=== PATIENT | female | born 1955 | race Caucasian/White ===

== ENCOUNTER 2021-06-27 08:14 | Emergency (ER) | payer OTHER, SELFPAY ==
[2021-06-27 08:15] VITALS: BP 140/100; PULSE 114; RESP 18; TEMP 36.5; O2SAT 95; BMI 31.8
--- NOTE | 2021-06-27 08:56 | EX.ED.DYSGE1 ---
HPI History of Present Illness Chief Complaint: Cellulitis Informant: patient and spouse/S.O. Onset/Context/Timing Onset: Yesterday Context: Gradual Onset Timing: Continuous Current Severity: Mild Maximum Severity: Mild Narrative Narrative: 66-year-old female history of diabetes and hypertension. States that she developed redness to the bridge of her nose yesterday and today it sore. She has had episodes like this before with either cellulitis or allergic reactions. She denies any fever or chills. Recently she did clean the floor with chemicals but is not sure if that is involved with this or not. Prior similar symptoms: Yes Recent Illness/Hospitalization: No PFSH PFSH Medical History Diabetes High cholesterol Hypertension Home Medications cephalexin 500 mg PO Q6H 7 Days #28 cap 06/27/21 [Rx Last Taken Unknown] Allergy/AdvReac Type Severity Reaction Status Date / Time bee venom protein (honey bee) Allergy Anaphylaxis Verified 06/27/21 08:18 Social History Smoking Status: Never smoker ROS ROS ED ROS Narrative Denies recent illness. Review of Systems ROS Unobtainable: Denies due to encephalopathy Constitutional Constitutional ED: Denies fever(s) Eyes Eyes: Denies change in vision ENT ENT ED: Denies ear pain Cardiovascular Cardiovascular: Denies chest pain Respiratory/Chest Respiratory/Chest: Denies dyspnea Gastrointestinal Gastrointestinal: Denies abdominal pain Genitourinary Genitourinary ED: Denies dysuria Musculoskeletal Musculoskeletal: Denies myalgias Integumentary Denies rash Neurologic Neurologic: Denies headache(s) Psychiatric Psychiatric: Denies depression Endocrine Endocrinology: Denies polyuria Allergic/Immunologic Allergic/Immunologic ED: Denies urticaria EXAM Physical Exam Narrative Exam Narrative: 66-year female no acute distress vital signs stable afebrile. H EENT exam she has mild redness tenderness to the bridge of her nose on the skin. There is no trauma. There is no malar rash at this time. Mild nasal congestion. TMs normal. Posterior pharynx normal. Multiple areas of dental decay and caries. No gingival swelling. Neck nontender no lymphadenopathy. Lungs are clear. Heart regular rate and rhythm. Otherwise exam unremarkable. Const Vital Signs: 06/27/21 08:15 Temperature 97.7 F L Temperature Source Temporal Pulse Rate 114 H Respiratory Rate 18 Blood Pressure 140/100 H Blood Pressure Mean 113 Pulse Ox 95 Oxygen Delivery Method Room Air Positive well nourished and well developed; Negative for cachectic, contractures or unkempt General Appearance ED: well developed and NAD; Negative for unkempt, cachectic, contractures or pallor Nutritional Appearance: Negative for cachectic HEENT Reports moist mucous membranes tenderness; Negative for trauma Eyes PERRL and EOMs intact bilaterally Neck no lymphadenopathy, supple and no JVD General: Negative for tenderness Chest Wall inspection of chest normal and palpation of chest normal Resp normal respiratory effort and clear to auscultation bilaterally Auscultation: Negative for rales, rhonchi or wheezes Cardio regular rate, regular rhythm, S1 normal heart sound, S2 normal heart sound and no murmurs GI normal to inspection, nondistended, normoactive bowel sounds, non-tender, non-distended and no masses Auscultation: normoactive bowel sounds Palpation: soft; Negative for tender, guarding or rebound tenderness present Back/Spine no CVA tenderness General Back: Negative for CVA tenderness Cervical Spine: Negative for cervical spine tenderness Thoracic Spine / Upper Back: Negative for thoracic spinal tenderness Extremity normal to inspection General Extremety ED: Negative for edema or tenderness General Extremity: Negative for edema Neuro oriented x3 and CN's II-XII intact bilaterally Sensorium / Orientation: alert; Negative for lethargic or stuporous Motor Exam: strength 5/5 throughout Psych mental status grossly normal Appearance: Negative for unkempt Attitude: No agitated Mood & Affect: Negative for depressed or tearful Skin No no rashes or lesions noted and no wounds General Skin Exam: Negative for jaundice or pallor Rashes: rashes noted MDM MDM MDM Narrative Medical decision making narrative: Patient has a mild rash to her nose which may be secondary to early cellulitis it could also be from a chemical reaction from when she was cleaning her floor. I will start her on Keflex 4 times a day for a week she knows she can stop it if this improves. She knows to return if worse. Discharge Plan Triage Chief Complaint: Cellulitis ED Provider: Carlos Sharif Dx/Rx/DC Orders Clinical Impression: Cellulitis of face Instructions: ED Cellulitis, Facial Prescriptions: New cephalexin 500 mg capsule 500 mg PO Q6H 7 Days Qty: 28 RF: 0 Primary Care Provider: Care Physician,No Primary Referrals: Jose Dan MD [STAFF PHYSICIAN] - 1 Week if not improving Care Physician,No Primary [Primary Care Provider] - Activity Restrictions/Additional Instructions: Keflex 1 pill 4 times a day. This is an antibiotic and if this is an infection should help it resolve. Your rash could also be secondary to chemical exposure allergic reaction if so that should go in the next several days. You can use cool compresses on it. Tylenol for pain. Return if worse or follow-up if not improving. Local dentist would include: [facility], [facility] and Dr. Tyler Sumner and Dr. Chaudhry. Disposition Disposition: Home, Self Care
== END 2021-06-27 09:22 | disposition home or self-care (01) ==
PROVIDERS: Emergency Provider Emergency Medicine
DX: L03.211 Cellulitis of face (principal); K02.9 Dental caries, unspecified; E11.9 Type 2 diabetes mellitus without complications; I10 Essential (primary) hypertension; E78.00 Pure hypercholesterolemia, unspecified
CPT/HCPCS: 99282

== ENCOUNTER 2021-08-17 08:59 | Outpatient (CLI) | payer OTHER, SELFPAY ==
[2021-08-17 10:04] LABS: Absolute Lymphocyte Count 1.75 X10^3/uL (0.83-4.51); Absolute Neutrophil Count 3.1 X10^3/uL (2.0-7.7); Basophil# 0.06 X10^3/uL; Basophil% 1.1 % (0-1); Eosinophil# 0.32 X10^3/uL; Eosinophils% 5.6 % (0-5); Hematocrit 43.5 % (37-47); Hemoglobin 14.9 g/dL (12.0-15.0); Lymphocyte # 1.75 X10^3/ul (0.83-4.51); Lymphocyte % 30.8 % (19-41); Mean Corp Hgb Conc 34.3 g/dL (32-36); Mean Corpuscular Hgb 29.6 pg (27.0-32.0); Mean Corpuscular Volume 86.5 fL (81-99); Mean Platelet Vol. 13.8 fl (6.2-12.0); Monocyte# 0.43 X10^3/uL; Monocyte% 7.6 % (0-10); NRBC Flagged by Analyzer 0 % (0-5); Neutrophil # 3.11 X10^3/uL (2.7-7.7); Neutrophil % 54.5 % (47-70); Platelet Count 123 K/mm3 (150-450); RBC Distribution Width CV 12.9 % (11.6-14.6); RBC Distribution Width SD 40.1 fl (35.1-43.9); Red Blood Count 5.03 M/mm3 (4.2-5.4); White Blood Count 5.7 K/mm3 (4.4-11.0)
[2021-08-17 10:37] LABS: Vitamin B12 720 pg/mL (211-911); Vitamin D,25 Hydroxy 47.4 ng/mL
[2021-08-17 10:57] LABS: ALB/GLOB Ratio 1.2 RATIO (0.9-2.4); AST(SGOT) 19 U/L (15-37); Alanine Aminotransfer ALT/SGPT 34 U/L (13-56); Alkaline Phosphatase 77 U/L (45-117); Anion Gap 10 (5-15); BUN 11 mg/dL (7-18); BUN/Creat Ratio 19.9 RATIO (10-20); Calcium,Total 9.2 mg/dL (8.5-10.1); Chloride 106 mmol/L (98-107); Cholesterol 148 mg/dL (200); Creatinine, Serum 0.55 mg/dL (0.55-1.02); EST Glomerular Filtration Rate 117 mL/min (>60); Est Glom Filt Rate - Afr Amer 142 mL/min (>60); Globulin 3.2 g/dL (2.2-4.2); Glucose 224 mg/dL (74-106); High Density Lipoprotein 45 mg/dL; Potassium 3.8 mmol/L (3.5-5.1); Protein, Total 7.2 g/dL (6.4-8.2); Sodium Level 140 mmol/L (136-145); Triglycerides 283 mg/dL; Very Low Density Lipoprotein 57 mg/dL (5-40)
[2021-08-17 11:10] LABS: Hemoglobin A1c 9.4 % (3.8-5.6)
[2021-08-22 15:08] LABS: VITAMIN B6 97.6 ug/L (2.0-32.8)
[2021-08-22 15:45] LABS: Vitamin B1, Thiamine 223.8 nmol/L (66.5-200.0)
== END 2021-08-17 23:59 | disposition short-term general hospital (02) ==
LOC: MFPLAB 09:00
PROVIDERS: PCP Family Medicine; Referring Provider Family Medicine; Visit Provider Family Medicine
DX: E78.5 Hyperlipidemia, unspecified (principal); E11.9 Type 2 diabetes mellitus without complications; E55.9 Vitamin D deficiency, unspecified
CPT/HCPCS: 36415; 80053; 80061; 82306; 82607; 83036; 84207; 84425; 85025

== ENCOUNTER 2021-09-03 12:19 | Outpatient (CLI) | payer OTHER, SELFPAY ==
--- NOTE | 2021-09-03 12:24 | ECHOD_ITS ---
Reason For Study: MURMUR Procedure This was a 2D Doppler, Color Flow transthoracic echocardiogram. Exam performed in department. Left Ventricle Normal LV size. Left ventricular systolic function is normal. The estimated ejection fraction is 60 %. Transmitral and pulmonary venous doppler flow suggestive of impaired relaxation of left ventricle. No regional wall motion abnormalities noted. Right Ventricle Normal RV size. Normal systolic function. Atria Normal left atrium. Normal right atrium. Mitral Valve Normal mitral valve. Tricuspid Valve Normal tricuspid valve. Aortic Valve Trisinus/trileaflet aortic valve. Mild focal aortic valve calcification. Peak aortic valve gradient 25 mmHg. Mean aortic valve gradient 14 mmHg. Pulmonic Valve The pulmonic valve is not well visualized. Great Vessels Normal aortic root. The pulmonary artery is normal size. Normal inferior vena cava. Pericardium/Pleural No pericardial effusion. MMode/2D Measurements & Calculations LVIDd: 4.0 cm IVSd: 1.1 cm LVOT diam: 2.2 cm LVIDs: 2.7 cm LVPWd: 1.1 cm LVOT area: 3.9 cm2 RVDd: 3.1 cm FS: 31.5 % Ao root diam: 3.0 cm LAV(MOD-bp): 40.8 ml LA A4 area: 14.4 cm2 LAV(MOD-bp) Indexed: 21.0 ml/m2 LAV(MOD-sp2): 46.1 ml LAV(MOD-sp4): 34.4 ml LA dimension(2D): 3.2 cm RA A4 area: 12.7 cm2 Time Measurements MV dec time: 0.12 sec Doppler Measurements & Calculations MV E max prieto: 70.1 cm/sec Lat Peak E' Prieto: 10.0 cm/sec Med Peak E' Prieto: 8.4 cm/sec MV A max prieto: 87.8 cm/sec E/E' lat: 7.0 E/E' med: 8.3 MV E/A: 0.80 Ao V2 max: 250.6 cm/sec LV V1 max: 85.6 cm/sec SV(LVOT): 64.4 ml Ao max P.1 mmHg LV V1 max P.9 mmHg Ao V2 mean: 180.5 cm/sec LV V1 mean P.7 mmHg Ao mean P.3 mmHg LV V1 mean: 63.7 cm/sec Ao V2 VTI: 42.3 cm LV V1 VTI: 16.5 cm ZECHARIAH(I,D): 1.5 cm2 ZECHARIAH(V,D): 1.3 cm2 PA V2 max: 99.9 cm/sec ECHO/Echo Complete Interpretation Summary Normal LV size. Left ventricular systolic function is normal. The estimated ejection fraction is 60 %. Transmitral and pulmonary venous doppler flow suggestive of impaired relaxation of left ventricle Mild focal aortic valve calcification. Mean aortic valve gradient 14 mmHg. Structurally normal valves. Ordering Physician: Jose Dan Referring Physician: Jose Dan Performed By: Brittnee Esquivel RDCS, RVT
== END 2021-09-03 23:59 | disposition short-term general hospital (02) ==
LOC: CVS 12:20
PROVIDERS: PCP Family Medicine; Referring Provider Family Medicine; Visit Provider Family Medicine
DX: R01.1 Cardiac murmur, unspecified (principal)
CPT/HCPCS: 93306

== ENCOUNTER → 2021-12-13 | Outpatient (CLI) | payer OTHER, SELFPAY ==
[2021-12-13 10:25] LABS: Absolute Lymphocyte Count 2.15 X10^3/uL (0.83-4.51); Absolute Neutrophil Count 2.8 X10^3/uL (2.0-7.7); Basophil# 0.07 X10^3/uL; Basophil% 1.2 % (0-1); Eosinophil# 0.51 X10^3/uL; Eosinophils% 8.5 % (0-5); Hematocrit 47.9 % (37-47); Hemoglobin 15.8 g/dL (12.0-15.0); Lymphocyte # 2.15 X10^3/ul (0.83-4.51); Lymphocyte % 35.7 % (19-41); Mean Corpuscular Hgb 29.5 pg (27.0-32.0); Mean Corpuscular Volume 89.4 fL (81-99); Mean Platelet Vol. 13.7 fl (6.2-12.0); Monocyte# 0.48 X10^3/uL; NRBC Flagged by Analyzer 0 % (0-5); Neutrophil # 2.79 X10^3/uL (2.7-7.7); Neutrophil % 46.3 % (47-70); POSITIVE COUNT YES; Platelet Count 114 K/mm3 (150-450); RBC Distribution Width CV 12.7 % (11.6-14.6); RBC Distribution Width SD 41.3 fl (35.1-43.9); Red Blood Count 5.36 M/mm3 (4.2-5.4)
[2021-12-13 10:51] LABS: Hemoglobin A1c 7.5 % (3.8-5.6)
[2021-12-13 10:54] LABS: ALB/GLOB Ratio 1.5 RATIO (0.9-2.4); AST(SGOT) 17 U/L (15-37); Alanine Aminotransfer ALT/SGPT 35 U/L (13-56); Albumin, Serum 4.5 g/dL (3.2-5.0); Alkaline Phosphatase 84 U/L (45-117); Anion Gap 7 (5-15); BUN 16 mg/dL (7-18); Calcium,Total 9.3 mg/dL (8.5-10.1); Chloride 106 mmol/L (98-107); Cholesterol 146 mg/dL (200); Creatinine, Serum 0.64 mg/dL (0.55-1.02); EST Glomerular Filtration Rate 99 mL/min (>60); Est Glom Filt Rate - Afr Amer 120 mL/min (>60); Glucose 172 mg/dL (74-106); High Density Lipoprotein 45 mg/dL; Potassium 4.4 mmol/L (3.5-5.1); Protein, Total 7.5 g/dL (6.4-8.2); Sodium Level 140 mmol/L (136-145); Thyroid Stim Hormone (TSH) 1.77 uIU/mL (0.358-3.74); Triglycerides 231 mg/dL; Very Low Density Lipoprotein 46 mg/dL (5-40)
[2021-12-13 11:06] LABS: Differential Indicated SCAN CRITERIA MET; Platelet Estimate SLT DEC (ADEQ)
[2021-12-13 11:30] LABS: Vitamin B12 767 pg/mL (211-911); Vitamin D,25 Hydroxy 70.4 ng/mL
== END | disposition home or self-care (01) ==
LOC: MFPLAB 08:31
PROVIDERS: PCP Family Medicine; Referring Provider Family Medicine; Visit Provider Family Medicine
DX: I10 Essential (primary) hypertension (principal); E11.9 Type 2 diabetes mellitus without complications; E78.5 Hyperlipidemia, unspecified; E53.9 Vitamin B deficiency, unspecified; E55.9 Vitamin D deficiency, unspecified
CPT/HCPCS: 36415; 80053; 80061; 82306; 82607; 83036; 84443; 85025

== ENCOUNTER → 2021-12-18 | Outpatient (CLI) | payer OTHER, SELFPAY ==
[2021-12-18 15:54] LABS: Ferritin 157 ng/mL (8-252); Iron 76 ug/dL (50-170); Iron Binding Capacity,Total 314 ug/dL (250-450)
[2021-12-20 10:35] LABS: Transferrin 244 mg/dL (192-364)
== END | disposition home or self-care (01) ==
LOC: MFPLAB 11:44
PROVIDERS: PCP Family Medicine; Referring Provider Family Medicine; Visit Provider Family Medicine
DX: D75.1 Secondary polycythemia (principal)
CPT/HCPCS: 36415; 82728; 83540; 83550; 84466

== ENCOUNTER → 2022-03-26 | Outpatient (CLI) | payer MEDICARE, SELFPAY ==
[2022-03-26 09:59] LABS: Absolute Lymphocyte Count 2.16 X10^3/uL (0.83-4.51); Absolute Neutrophil Count 2.4 X10^3/uL (2.0-7.7); Basophil# 0.06 X10^3/uL; Basophil% 1.1 % (0-1); Eosinophil# 0.59 X10^3/uL; Eosinophils% 10.4 % (0-5); Hematocrit 44.3 % (37-47); Lymphocyte # 2.16 X10^3/ul (0.83-4.51); Mean Corp Hgb Conc 33.9 g/dL (32-36); Mean Corpuscular Hgb 29.9 pg (27.0-32.0); Mean Corpuscular Volume 88.4 fL (81-99); Mean Platelet Vol. 12.4 fl (6.2-12.0); Monocyte# 0.43 X10^3/uL; Monocyte% 7.6 % (0-10); NRBC Flagged by Analyzer 0 % (0-5); Neutrophil # 2.42 X10^3/uL (2.7-7.7); Neutrophil % 42.5 % (47-70); Platelet Count 138 K/mm3 (150-450); RBC Distribution Width CV 12.9 % (11.6-14.6); RBC Distribution Width SD 41.8 fl (35.1-43.9); Red Blood Count 5.01 M/mm3 (4.2-5.4); White Blood Count 5.7 K/mm3 (4.4-11.0)
[2022-03-26 10:19] LABS: Vitamin B12 575 pg/mL (211-911)
[2022-03-26 10:28] LABS: Hemoglobin A1c 7.7 % (3.8-5.6)
[2022-03-26 10:52] LABS: ALB/GLOB Ratio 1.2 RATIO (0.9-2.4); AST(SGOT) 15 U/L (15-37); Alanine Aminotransfer ALT/SGPT 35 U/L (13-56); Alkaline Phosphatase 78 U/L (45-117); Anion Gap 7 (5-15); BUN 13 mg/dL (7-18); Calcium,Total 9.6 mg/dL (8.5-10.1); Chloride 108 mmol/L (98-107); Cholesterol 127 mg/dL (200); Creatinine, Serum 0.68 mg/dL (0.55-1.02); EST Glomerular Filtration Rate 92 mL/min (>60); Est Glom Filt Rate - Afr Amer 111 mL/min (>60); Globulin 3.3 g/dL (2.2-4.2); Glucose 162 mg/dL (74-106); High Density Lipoprotein 44 mg/dL; Potassium 3.9 mmol/L (3.5-5.1); Protein, Total 7.3 g/dL (6.4-8.2); Sodium Level 139 mmol/L (136-145); Thyroid Stim Hormone (TSH) 2.02 uIU/mL (0.358-3.74); Triglycerides 209 mg/dL; Very Low Density Lipoprotein 42 mg/dL (5-40)
== END | disposition home or self-care (01) ==
LOC: MFPLAB 08:30
PROVIDERS: PCP Family Medicine; Referring Provider Family Medicine; Visit Provider Family Medicine
DX: E11.9 Type 2 diabetes mellitus without complications (principal); E53.9 Vitamin B deficiency, unspecified; E55.9 Vitamin D deficiency, unspecified
CPT/HCPCS: 36415; 80053; 80061; 82306; 82607; 83036; 84443; 85025

== ENCOUNTER 2022-09-26 14:14 | Emergency (ER) | payer MEDICARE, SELFPAY ==
[2022-09-26] VITALS (7 sets, daily range): BP systolic 122–165; BP diastolic 83–107; PULSE 78–98; RESP 14–17; TEMP 36.6; O2SAT 95–100; BMI 30.5
--- NOTE | 2022-09-26 15:57 | ED.VIS.CHEST ---
HPI History of Present Illness Chief Complaint: Chest Pain Narrative Narrative: Patient is presenting with chest pain and epigastric pain. This has been ongoing for a few weeks, she gets it more in the morning when she wakes up. Today she was in the store and developed that epigastric pain but it also radiated to the chest. She is now improved but came to the ED. She has no back pain or tearing sensation. There is no pleuritic component. No lower extremity edema or calf pain. No DVT or PE risk factors. [facility] Medical History (Updated 09/26/22 @ 18:[address] Michael Luciano MD) Diabetes Endometriosis High cholesterol Hypertension Home Medications cephalexin 500 mg capsule 500 mg PO Q6H 7 days #28 caps 06/27/21 [Rx Last Taken Unknown] aspirin 81 mg tablet,delayed release (Panda Low Dose Aspirin) 81 mg PO DAILY 09/26/22 [History Last Taken Unknown] atorvastatin 10 mg tablet 10 mg PO DAILY 09/26/22 [History Last Taken Unknown] cholecalciferol (vitamin D3) 50 mcg (2,000 unit) capsule (Vitamin D3) 2,000 unit PO DAILY 09/26/22 [History Last Taken Unknown] dapagliflozin 5 mg tablet (Farxiga) 5 mg PO BID 09/26/22 [History Last Taken Unknown] garlic 1 tab PO DAILY 09/26/22 [History Last Taken Unknown] glimepiride 4 mg tablet 4 mg PO DAILY 09/26/22 [History Last Taken Unknown] lisinopril 40 mg tablet 40 mg PO DAILY 09/26/22 [History Last Taken Unknown] multivitamin 1 tab PO DAILY 09/26/22 [History Last Taken Unknown] omeprazole 40 mg capsule,delayed release 40 mg PO DAILY #14 caps 09/26/22 [Rx Last Taken Unknown] Allergy/AdvReac Type Severity Reaction Status Date / Time bee venom protein (honey bee) Allergy Anaphylaxis Verified 09/26/22 14:17 Surgical History (Updated 09/26/22 @ 15:55 by Nickie Alvarado) History of appendectomy History of cholecystectomy History of hysterectomy History of tonsillectomy Social History Smoking Status: Never smoker ROS ROS ED ROS Narrative Past medical history: Reviewed Medications: Reviewed Social history: Noncontributory Review of systems: All systems negative except as indicated General: No fever Eyes: No visual changes ENT: No upper airway congestion, normal voice Neck: No neck pain Cardiovascular: Retrosternal chest pain Respiratory: No shortness of breath or cough Gastrointestinal: Epigastric pain no nausea Genitourinary: No dysuria Musculoskeletal: Denies myalgias no difficulty with ambulation Skin: No rash Neurological: No memory loss, confusion or any focal weakness EXAM Physical Exam Narrative Exam Narrative: Physical exam General: Patient appears relatively comfortable Head: Normocephalic, Atraumatic Eyes: Conjunctiva not pale ENT: Moist mucous membranes Neck: Supple, Nontender, No lymphadenopathy Cardiovascular: Regular rate, Regular rhythm Respiratory: No distress, CTA bilaterally Abdomen: Soft, reproducible tenderness in the epigastrium. No guarding or rebound no right upper quadrant pain. Negative [place]'s. Back: Nontender, Normal Inspection. Negative for: CVA tenderness Extremities: Nontender, No edema Skin: Normal color, No rash Neurological: Alert, Normal Strength, Normal Sensation Psychological: Normal affect Const Vital Signs: 09/26/22 14:15 09/26/22 15:52 09/26/22 15:52 Temperature 98 F Temperature Source Temporal Pulse Rate 94 98 Respiratory Rate 16 16 Respiratory Effort Respiratory Pattern Blood Pressure 165/107 H 160/91 H Blood Pressure Mean 126 114 Pulse Ox 100 98 98 Oxygen Delivery Method Room Air Room Air Room Air 09/26/22 15:54 09/26/22 15:58 09/26/22 16:00 Temperature Temperature Source Pulse Rate 84 Respiratory Rate 14 Respiratory Effort Normal Respiratory Pattern Normal Blood Pressure 122/85 H Blood Pressure Mean 97 Pulse Ox 97 96 Oxygen Delivery Method Room Air Room Air 09/26/22 17:00 09/26/22 18:00 Temperature Temperature Source Pulse Rate 88 90 Respiratory Rate 16 17 Respiratory Effort Respiratory Pattern Blood Pressure 129/83 H 140/83 H Blood Pressure Mean 98 102 Pulse Ox 96 95 Oxygen Delivery Method Room Air Room Air [facility] MDM Lab Data Labs: Laboratory Results - last 24 hr 09/26/22 09/26/22 09/26/22 15:50 15:50 17:02 WBC Cancelled Corrected WBC Cancelled RBC Cancelled Hgb Cancelled Hct Cancelled MCV Cancelled MCH Cancelled MCHC Cancelled RDW Std Deviation Cancelled RDW Coeff of David Cancelled Plt Count Cancelled MPV Cancelled Immature Gran % (Auto) Cancelled Neut % (Auto) Cancelled Lymph % (Auto) Cancelled Darke % (Auto) Cancelled Eos % (Auto) Cancelled Baso % (Auto) Cancelled Absolute Neuts (auto) Cancelled Absolute Lymphs (auto) Cancelled Total Counted Cancelled Neutrophils % (Manual) Cancelled Band Neutrophils % Cancelled Lymphocytes % (Manual) Cancelled Monocytes % (Manual) Cancelled Eosinophils % (Manual) Cancelled Basophils % (Manual) Cancelled Metamyelocytes % Cancelled Myelocytes % Cancelled Promyelocytes % Cancelled Blast Cells % Cancelled Plasma Cell % (Manual) Cancelled Other Cells % Cancelled Nucleated RBC % Cancelled Nucleated RBCs/100 WBC Cancelled Differential Comment Cancelled Diff Path Review Cancelled Hypersegmented Neuts Cancelled Atypical Lymphocytes Cancelled Reactive Lymphocytes Cancelled Smudge Cells Cancelled Toxic Granulation Cancelled Toxic Vacuolation Cancelled Dohle Bodies Cancelled Agustin Rods Cancelled Platelet Estimate Cancelled Plt Morphology Comment Cancelled RBC Morphology Cancelled Polychromasia Cancelled Hypochromasia Cancelled Poikilocytosis Cancelled Basophilic Stippling Cancelled Anisocytosis Cancelled Microcytosis Cancelled Macrocytosis Cancelled Spherocytes Cancelled Sickle Cells Cancelled Target Cells Cancelled Tear Drop Cells Cancelled Ovalocytes Cancelled Stomatocytes Cancelled [place] Bodies Cancelled [place] Cells Cancelled Bite Cells Cancelled Crenated Cell Cancelled Acanthocytes (Spur) Cancelled Rouleaux Cancelled Schistocytes Cancelled Sodium 141 Potassium 4.1 Chloride 107 Carbon Dioxide 27.0 Anion Gap 7 BUN 19 H Creatinine 0.61 Estim Creat Clear Calc 82.74 Est GFR (MDRD) Af Amer 126 Est GFR (MDRD) Non-Af 104 BUN/Creatinine Ratio 31.0 H Glucose 100 Calcium 9.9 Magnesium 2.6 Total Bilirubin 0.70 Direct Bilirubin 0.12 AST 24 ALT 24 Alkaline Phosphatase 74 Troponin I High Sens 5 5 Total Protein 7.9 Albumin 4.5 Globulin 3.4 Lipase 210 09/26/22 17:02 WBC 6.0 Corrected WBC RBC 5.00 Hgb 14.8 Hct 44.4 MCV 88.8 MCH 29.6 MCHC 33.3 RDW Std Deviation 41.4 RDW Coeff of David 12.7 Plt Count 128 L MPV 12.6 H Immature Gran % (Auto) 0.300 Neut % (Auto) 52.9 Lymph % (Auto) 32.9 Darke % (Auto) 8.1 Eos % (Auto) 5.5 H Baso % (Auto) 0.3 Absolute Neuts (auto) 3.2 Absolute Lymphs (auto) 1.99 Total Counted Neutrophils % (Manual) Band Neutrophils % Lymphocytes % (Manual) Monocytes % (Manual) Eosinophils % (Manual) Basophils % (Manual) Metamyelocytes % Myelocytes % Promyelocytes % Blast Cells % Plasma Cell % (Manual) Other Cells % Nucleated RBC % 0 Nucleated RBCs/100 WBC Differential Comment Diff Path Review Hypersegmented Neuts Atypical Lymphocytes Reactive Lymphocytes Smudge Cells Toxic Granulation Toxic Vacuolation Dohle Bodies Agustin Rods Platelet Estimate Plt Morphology Comment RBC Morphology Polychromasia Hypochromasia Poikilocytosis Basophilic Stippling Anisocytosis Microcytosis Macrocytosis Spherocytes Sickle Cells Target Cells Tear Drop Cells Ovalocytes Stomatocytes [place] Bodies [place] Cells Bite Cells Crenated Cell Acanthocytes (Spur) Rouleaux Schistocytes Sodium Potassium Chloride Carbon Dioxide Anion Gap BUN Creatinine Estim Creat Clear Calc Est GFR (MDRD) Af Amer Est GFR (MDRD) Non-Af BUN/Creatinine Ratio Glucose Calcium Magnesium Total Bilirubin Direct Bilirubin AST ALT Alkaline Phosphatase Troponin I High Sens Total Protein Albumin Globulin Lipase Radiography Diagnostic Testing: Clinical Impression(s) from Imaging Studies Chest X-Ray 09/26/22 16:05 IMPRESSION: No radiographic evidence of acute cardiopulmonary disease. Electronically Signed: Antonio Szymanski MD at 16:39 EST , EKG Initial EKG: Comments: Sinus rhythm with a rate of 97. Normal [place] interval. Normal QTc interval. No ischemic changes. Normal EKG. Interpreted by emergency doctor Treatment and Re-Evaluation Narrative: A. Problems addressed Patient has epigastric pain, as well as chest pain. Patient was ruled out for pneumonia, pneumothorax, acute coronary syndrome based on 2 troponins and a normal EKG. There are no signs or symptoms of a PE. Patient's likely etiology is reflux disease, she was treated for it and improved. She appears well I believe she can be safely discharged. She is not on a PPI and I will start it. B. Amount and/or complexity of the data (2 out of 3) 1. CBC CMP and 2 troponins were interpreted by me 2. Independent interpretation of test Telemetry: Sinus rhythm with a rate in the 90s without any ectopy. C. Risk of complications and/or morbidity Differential diagnosis: See above I have thought about admitting the patient for cardiac work-up however the patient did rule out with 2 troponins and a normal EKG Discharge Plan Triage Chief Complaint: Chest Pain ED Provider: Michael Luciano Dx/Rx/DC Orders Clinical Impression: Chest pain, Epigastric pain Instructions: ED Chest Pain, Uncertain Cause, ED Epigastric Pain Uncertain Cause Prescriptions: New omeprazole 40 mg capsule,delayed release(DR/EC) 40 mg PO DAILY Qty: 14 0RF No Action cephalexin 500 mg capsule 500 mg PO Q6H 7 Days Qty: 28 0RF multivitamin Tablet 1 tab PO DAILY atorvastatin 10 mg tablet 10 mg PO DAILY aspirin [Panda Low Dose Aspirin] 81 mg tablet,delayed release (DR/EC) 81 mg PO DAILY glimepiride 4 mg tablet 4 mg PO DAILY lisinopril 40 mg tablet 40 mg PO DAILY garlic Tablet 1 tab PO DAILY cholecalciferol (vitamin D3) [Vitamin D3] 50 mcg (2,000 unit) capsule 2,000 unit PO DAILY Farxiga 5 mg tablet 5 mg PO BID Primary Care Provider: Jose Dan Referrals: Jose Dan MD [Primary Care Provider] - 3-5 Days Disposition Disposition: Home, Self Care
--- NOTE | 2022-09-26 16:05 | RAD_ITS ---
EXAM: XR CHEST, 1 VIEW CLINICAL INDICATION: chest pain TECHNIQUE: Frontal view of the chest. This report was created using [employer] report generation technology. COMPARISON: None. FINDINGS: LUNGS AND PLEURAL SPACES: Unremarkable. No consolidation or edema. No pneumothorax. No effusion. HEART: Unremarkable. Cardiac silhouette not enlarged. MEDIASTINUM: Central airways and mediastinal contour are unremarkable. BONES/JOINTS: Unremarkable. SOFT TISSUES: Unremarkable. RAD/Chest 1 View (Portable) IMPRESSION: No radiographic evidence of acute cardiopulmonary disease. Electronically Signed: Antonio Szymanski MD at 16:39 EST ,
[2022-09-26] MEDS: Aspirin 81 MG TAB.CHEW 324 MG PO (16:12)
[2022-09-26] MEDS: Mag Hydrox/Al Hydrox/Simeth 30 ML UDC PO (16:13)
[2022-09-26 16:28] LABS: AST(SGOT) 24 U/L (15-37); Alanine Aminotransfer ALT/SGPT 24 U/L (13-56); Albumin, Serum 4.5 g/dL (3.2-5.0); Alkaline Phosphatase 74 U/L (45-117); Anion Gap 7 (5-15); BUN 19 mg/dL (7-18); Bilirubin, Direct 0.12 mg/dL (0.00-0.30); Calcium,Total 9.9 mg/dL (8.5-10.1); Chloride 107 mmol/L (98-107); Creatinine, Serum 0.61 mg/dL (0.55-1.02); EST Glomerular Filtration Rate 104 mL/min (>60); Est Glom Filt Rate - Afr Amer 126 mL/min (>60); Estimated Creatinine Clearance 82.74 ml/min; Globulin 3.4 g/dL (2.2-4.2); Glucose 100 mg/dL (74-106); Lipase 210 U/L (73-393); Magnesium 2.6 mg/dL (1.6-2.6); Potassium 4.1 mmol/L (3.5-5.1); Protein, Total 7.9 g/dL (6.4-8.2); Sodium Level 141 mmol/L (136-145); Troponin-I HS 5 pg/mL (3.0-54.0)
[2022-09-26 17:35] LABS: Troponin-I HS 5 pg/mL (3.0-54.0)
[2022-09-26 18:20] LABS: Absolute Lymphocyte Count 1.99 X10^3/uL (0.83-4.51); Absolute Neutrophil Count 3.2 X10^3/uL (2.0-7.7); Basophil# 0.02 X10^3/uL; Basophil% 0.3 % (0-1); Eosinophil# 0.33 X10^3/uL; Eosinophils% 5.5 % (0-5); Hematocrit 44.4 % (37-47); Hemoglobin 14.8 g/dL (12.0-15.0); Lymphocyte # 1.99 X10^3/ul (0.83-4.51); Lymphocyte % 32.9 % (19-41); Mean Corp Hgb Conc 33.3 g/dL (32-36); Mean Corpuscular Hgb 29.6 pg (27.0-32.0); Mean Corpuscular Volume 88.8 fL (81-99); Mean Platelet Vol. 12.6 fl (6.2-12.0); Monocyte# 0.49 X10^3/uL; Monocyte% 8.1 % (0-10); NRBC Flagged by Analyzer 0 % (0-5); Neutrophil # 3.19 X10^3/uL (2.7-7.7); Neutrophil % 52.9 % (47-70); Platelet Count 128 K/mm3 (150-450); RBC Distribution Width CV 12.7 % (11.6-14.6); RBC Distribution Width SD 41.4 fl (35.1-43.9)
== END 2022-09-26 18:50 | disposition home or self-care (01) ==
PROVIDERS: Emergency Provider Emergency Medicine; PCP Family Medicine; Visit Provider Emergency Medicine
DX: R10.13 Epigastric pain (principal); E11.9 Type 2 diabetes mellitus without complications; E78.00 Pure hypercholesterolemia, unspecified; I10 Essential (primary) hypertension; R07.9 Chest pain, unspecified; Z79.82 Long term (current) use of aspirin; Z79.899 Other long term (current) drug therapy
CPT/HCPCS: 71045; 80048; 80076; 83690; 83735; 84484; 85025; 93005; 99285; A4216

== ENCOUNTER → 2022-10-16 | Outpatient (CLI) | payer MEDICARE, SELFPAY ==
[2022-10-16 10:30] LABS: Absolute Lymphocyte Count 2.43 X10^3/uL (0.83-4.51); Absolute Neutrophil Count 2.8 X10^3/uL (2.0-7.7); Basophil# 0.07 X10^3/uL; Basophil% 1.1 % (0-1); Eosinophil# 0.43 X10^3/uL; Eosinophils% 6.9 % (0-5); Hematocrit 46.8 % (37-47); Hemoglobin 15.2 g/dL (12.0-15.0); Lymphocyte # 2.43 X10^3/ul (0.83-4.51); Lymphocyte % 39.1 % (19-41); Mean Corp Hgb Conc 32.5 g/dL (32-36); Mean Corpuscular Hgb 29.3 pg (27.0-32.0); Mean Corpuscular Volume 90.3 fL (81-99); Mean Platelet Vol. 12.4 fl (6.2-12.0); Monocyte# 0.49 X10^3/uL; Monocyte% 7.9 % (0-10); NRBC Flagged by Analyzer 0 % (0-5); Neutrophil # 2.77 X10^3/uL (2.7-7.7); Neutrophil % 44.5 % (47-70); Platelet Count 137 K/mm3 (150-450); RBC Distribution Width CV 12.7 % (11.6-14.6); Red Blood Count 5.18 M/mm3 (4.2-5.4); White Blood Count 6.2 K/mm3 (4.4-11.0)
[2022-10-16 10:54] LABS: Hemoglobin A1c 5.9 % (3.8-5.6); Microalbumin,Random Urine < 5.0 mg/L (NO RANGE EST.)
[2022-10-16 10:59] LABS: Vitamin B12 508 pg/mL (211-911); Vitamin D,25 Hydroxy 81.3 ng/mL
[2022-10-16 11:00] LABS: ALB/GLOB Ratio 1.3 RATIO (0.9-2.4); AST(SGOT) 16 U/L (15-37); Alanine Aminotransfer ALT/SGPT 24 U/L (13-56); Albumin, Serum 4.2 g/dL (3.2-5.0); Alkaline Phosphatase 71 U/L (45-117); Anion Gap 5 (5-15); BUN 17 mg/dL (7-18); BUN/Creat Ratio 27.5 RATIO (10-20); Calcium,Total 9.6 mg/dL (8.5-10.1); Chloride 107 mmol/L (98-107); Cholesterol 148 mg/dL (200); Creatinine, Serum 0.62 mg/dL (0.55-1.02); EST Glomerular Filtration Rate 103 mL/min (>60); Est Glom Filt Rate - Afr Amer 124 mL/min (>60); Globulin 3.3 g/dL (2.2-4.2); Glucose 92 mg/dL (74-106); High Density Lipoprotein 47 mg/dL; Protein, Total 7.5 g/dL (6.4-8.2); Sodium Level 140 mmol/L (136-145); Triglycerides 153 mg/dL; Very Low Density Lipoprotein 31 mg/dL (5-40)
[2022-10-21 22:27] LABS: VITAMIN B6 68.8 ug/L (3.4-65.2); Vitamin B1, Thiamine 157.5 nmol/L (66.5-200.0)
== END | disposition home or self-care (01) ==
LOC: MFPLAB 08:34
PROVIDERS: PCP Family Medicine; Referring Provider Family Medicine; Visit Provider Family Medicine
DX: E11.9 Type 2 diabetes mellitus without complications (principal); E53.9 Vitamin B deficiency, unspecified; E55.9 Vitamin D deficiency, unspecified
CPT/HCPCS: 36415; 80053; 80061; 82043; 82306; 82570; 82607; 83036; 84207; 84425; 85025

== ENCOUNTER → 2022-11-28 | Outpatient (CLI) | payer MEDICARE, SELFPAY ==
--- NOTE | 2022-11-28 09:13 | BI_ITS ---
MAMMOGRAPHY - BILATERAL SCREENING REASON FOR EXAM: Female, 67 years old. Routine annual screening examination. PERTINENT HISTORY: Non-contributory. TECHNIQUE: Digital bilateral breast avtar (3D mammographic acquisition) in the CC and MLO projections. 2-D mediolateral oblique (MLO) and craniocaudad (CC) views of both breasts were obtained. CAD: Full Field Digital Mammography with Computer Added Detection was performed. COMPARISON: None. Baseline examination. FINDINGS: Breast Composition: There are scattered areas of fibroglandular density. There are no dominant masses or suspicious calcifications. No other significant abnormalities are identified. BI/SCRN MAMM (CAD)W/AVTAR BILAT IMPRESSION: Negative screening mammogram. Yearly followup mammogram recommended. (A) ASSESSMENT CATEGORY: BIRADS Category 1: Negative. A letter regarding these results will be sent to the patient by the facility within 30 days. Approximately 10% of breast cancers are not detected by mammography. A normal mammogram should not delay biopsy of a clinically suspicious abnormality. [id number] Electronically Signed: Paul Harmon MD at 12:14 EDT ,
== END | disposition home or self-care (01) ==
PROVIDERS: PCP Family Medicine Geriatric Medicine; Referring Provider Family Medicine Geriatric Medicine; Visit Provider Family Medicine Geriatric Medicine
DX: Z12.31 Encounter for screening mammogram for malignant neoplasm of breast (principal)
CPT/HCPCS: 77063; 77067

== ENCOUNTER → 2023-01-17 | Outpatient (CLI) | payer MEDICARE, SELFPAY | END | disposition home or self-care (01) | LOC: PSN 12:09 | PROVIDERS: PCP Family Medicine Geriatric Medicine; Visit Provider Family Medicine Geriatric Medicine | DX: R68.83 Chills (without fever) (principal) | CPT/HCPCS: 87635; 87804; 87807; C9803 ==

== ENCOUNTER → 2023-05-21 | Outpatient (CLI) | payer MEDICARE, SELFPAY ==
[2023-05-21 11:05] LABS: Absolute Neutrophil Count 2.3 X10^3/uL (2.0-7.7); Basophil# 0.04 X10^3/uL; Basophil% 0.7 % (0-1); Eosinophils% 5.3 % (0-5); Hemoglobin 15.1 g/dL (12.0-15.0); Mean Corp Hgb Conc 32.1 g/dL (32-36); Mean Corpuscular Hgb 28.5 pg (27.0-32.0); Mean Corpuscular Volume 88.7 fL (81-99); Mean Platelet Vol. 12.4 fl (6.2-12.0); Monocyte# 0.45 X10^3/uL; NRBC Flagged by Analyzer 0 % (0-5); Neutrophil # 2.25 X10^3/uL (2.7-7.7); Neutrophil % 39.8 % (47-70); Platelet Count 145 K/mm3 (150-450); RBC Distribution Width SD 42.2 fl (35.1-43.9); White Blood Count 5.7 K/mm3 (4.4-11.0)
[2023-05-21 11:40] LABS: Vitamin D,25 Hydroxy 41.7 ng/mL
[2023-05-21 11:48] LABS: ALB/GLOB Ratio 1.3 RATIO (0.9-2.4); AST(SGOT) 14 U/L (15-37); Alanine Aminotransfer ALT/SGPT 24 U/L (13-56); Albumin, Serum 4.1 g/dL (3.2-5.0); Alkaline Phosphatase 90 U/L (45-117); Anion Gap 5 (5-15); BUN 19 mg/dL (7-18); BUN/Creat Ratio 30.5 RATIO (10-20); Chloride 109 mmol/L (98-107); Creatinine, Serum 0.62 mg/dL (0.55-1.02); EST Glomerular Filtration Rate 102 mL/min (>60); Est Glom Filt Rate - Afr Amer 123 mL/min (>60); Globulin 3.2 g/dL (2.2-4.2); Glucose 161 mg/dL (74-106); Potassium 3.9 mmol/L (3.5-5.1); Protein, Total 7.3 g/dL (6.4-8.2); Sodium Level 143 mmol/L (136-145); Thyroid Stim Hormone (TSH) 1.87 uIU/mL (0.358-3.74)
== END | disposition home or self-care (01) ==
PROVIDERS: PCP Family Medicine Geriatric Medicine; Visit Provider Family Medicine Geriatric Medicine
DX: I10 Essential (primary) hypertension (principal); E11.65 Type 2 diabetes mellitus with hyperglycemia; E55.9 Vitamin D deficiency, unspecified
CPT/HCPCS: 36415; 80053; 82306; 84443; 85025

== ENCOUNTER 2023-08-10 09:55 | Emergency (ER) | payer MEDICARE, SELFPAY ==
[2023-08-10 09:56] VITALS: BP 143/93; PULSE 87; RESP 16; TEMP 36.3; O2SAT 100; BMI 31.8
--- NOTE | 2023-08-10 10:15 | EDS_ITS ---
HPI History of Present Illness Chief Complaint: Cellulitis Informant: patient Onset/Context/Timing Onset: Yesterday Narrative Narrative: Patient presents secondary to concerns for cellulitis on her face. Yesterday she had a headache and some mild facial pain. She woke this morning with erythema over the right maxillary region. She was seen a year ago with cellulitis over the nose and on her face. She improved with antibiotics. She is concerned that she has recurrent cellulitis. [facility] Medical History Diabetes Endometriosis High cholesterol Hypertension Home Medications cephalexin 500 mg capsule 500 mg PO Q6H 7 days #28 caps 06/27/21 [Rx Last Taken Unknown] aspirin 81 mg tablet,delayed release (Panda Low Dose Aspirin) 81 mg PO DAILY 09/26/22 [History Last Taken Unknown] atorvastatin 10 mg tablet 10 mg PO DAILY 09/26/22 [History Last Taken Unknown] cholecalciferol (vitamin D3) 50 mcg (2,000 unit) capsule (Vitamin D3) 2,000 unit PO DAILY 09/26/22 [History Last Taken Unknown] dapagliflozin propanediol 5 mg tablet (Farxiga) 5 mg PO BID 09/26/22 [History Last Taken Unknown] garlic 1 tab PO DAILY 09/26/22 [History Last Taken Unknown] glimepiride 4 mg tablet 4 mg PO DAILY 09/26/22 [History Last Taken Unknown] lisinopril 40 mg tablet 40 mg PO DAILY 09/26/22 [History Last Taken Unknown] multivitamin 1 tab PO DAILY 09/26/22 [History Last Taken Unknown] omeprazole 40 mg capsule,delayed release 40 mg PO DAILY #14 caps 09/26/22 [Rx Last Taken Unknown] cephalexin 500 mg capsule 500 mg PO Q6 #40 CAPSULES 08/10/23 [Rx Last Taken Unknown] Allergy/AdvReac Type Severity Reaction Status Date / Time bee venom protein (honey bee) Allergy Anaphylaxis Verified 08/10/23 09:57 Surgical History History of appendectomy History of cholecystectomy History of hysterectomy History of tonsillectomy Social History Smoking Status: Never smoker ROS ROS ED Constitutional Constitutional ED: Denies chills or fever(s) Eyes Eyes: Denies change in vision or discharge from eye(s) ENT ENT ED: Reports other Details: Right facial pain and erythema ; Denies discharge from eye(s), rhinorrhea or sore throat Cardiovascular Cardiovascular: Denies chest pain Respiratory/Chest Respiratory/Chest: Denies cough or dyspnea Gastrointestinal Gastrointestinal: Denies abdominal pain Musculoskeletal Musculoskeletal: Denies back pain or extremity pain Integumentary Reports rash; Denies Abrasions Neurologic Neurologic: Denies headache(s) or weakness Psychiatric Psychiatric: Denies anxiety or depression Allergic/Immunologic Allergic/Immunologic ED: Denies lip swelling or urticaria EXAM Physical Exam Const Vital Signs: 08/10/23 09:56 Temperature 97.3 F L Temperature Source Temporal Pulse Rate 87 Respiratory Rate 16 Blood Pressure 143/93 H Blood Pressure Mean 109 Pulse Ox 100 Oxygen Delivery Method Room Air Positive well nourished and well developed General Appearance ED: well developed HEENT Reports moist mucous membranes HEENT Narrative: Mild erythema over the right maxillary sinus measuring approximately 3 cm in diameter. No fluctuance noted. No evidence of periorbital or orbital cellulitis. Eyes PERRL and EOMs intact bilaterally Chest Wall inspection of chest normal and palpation of chest normal Resp normal respiratory effort and clear to auscultation bilaterally Cardio regular rate and regular rhythm GI non-tender Palpation: soft Extremity normal to inspection Neuro oriented x3 and no sensory deficits noted Motor Exam: strength 5/5 throughout Psych mental status grossly normal Skin Skin Narrative: Facial erythema as noted above. MDM MDM MDM Narrative Medical decision making narrative: Patient be started on Keflex as she did well with this last year. We did discuss importance of monitoring for any progression to periorbital or orbital cellulitis. Return instructions are given. Discharge Plan Triage Chief Complaint: Cellulitis ED Provider: Hue Sierra Dx/Rx/DC Orders Clinical Impression: Cellulitis Prescriptions: New cephalexin 500 mg capsule 500 mg PO Q6 Qty: 40 0RF No Action cephalexin 500 mg capsule 500 mg PO Q6H 7 Days Qty: 28 0RF multivitamin Tablet 1 tab PO DAILY atorvastatin 10 mg tablet 10 mg PO DAILY aspirin [Panda Low Dose Aspirin] 81 mg tablet,delayed release (DR/EC) 81 mg PO DAILY glimepiride 4 mg tablet 4 mg PO DAILY lisinopril 40 mg tablet 40 mg PO DAILY garlic Tablet 1 tab PO DAILY cholecalciferol (vitamin D3) [Vitamin D3] 50 mcg (2,000 unit) capsule 2,000 unit PO DAILY Farxiga 5 mg tablet 5 mg PO BID omeprazole 40 mg capsule,delayed release(DR/EC) 40 mg PO DAILY Qty: 14 0RF Primary Care Provider: Piter Handy Chi Referrals: Piter Handy Chi, MD [Primary Care Provider] - 3-5 Days if not improving Disposition Disposition: Home, Self Care
[2023-08-10] MEDS: Cephalexin 250 MG Capsule 500 MG PO (10:22)
--- OUTSIDE RECORDS SUMMARY | 2023-08-10 10:38 | XMS RPT_ITS | CCD ---
Author Name Unknown Address [address] [place] [address] Organization [facility] Results Test Name Value Interpretation Reference Range Facil ity Procedures Date Procedure Procedure Detail Performing Clinician Start: 09-20-2020 Follow-up visit Progress note 10-15-2021 Note Date & Type Note Facility 10-15-2021 Note HNO ID: [id number] Author: Eugenia Ma LPN Service: ? Author Type: ? Type: Progress Notes Filed: 10/15/2021 2:22 PM Note Text: Pt called in and she is no longer with Dr. Kuhn. PCP updated. Eugenia Ma LPN [facility] Progress note 10-15-2021 Note Date & Type Note Facility 10-15-2021 Note HNO ID: [id number] Author: Hannah Cota Ma Service: ? Author Type: ? Type: Progress Notes Filed: 10/15/2021 2:22 PM Note Text: POPULATION HEALTH NAVIGATION OUTREACH Action/FYI 10/15/21-Message left on pt identified VM to call office back. Is she still following with , if so need appt and lab work done. If she is established with someone else please updated pcp. Pt identified by name and : YES, via phone Outreach Outcome/Action Unable to reach patient: Left message Reason for Outreach Care Gap or Scheduling/Wellness visits Payer: Payor: [facility] / Plan: [facility] CHOICE PLUS / Product Type: HMO / Care Gap Reviewed:: Follow-up appointment Reminder: Reminder note to check Health Maintenance for items below Health Maintenance items due: HBA1C Never done COVID-19 VACCINE(1) Never done URINE ALBUMIN:CREATININE RATIO Never done DILATED RETINAL EXAM Never done ONE PNEUMOVAX PRIOR TO AGE 65 Never done LDL CHOLESTEROL Never done BP CONTROLLED (<130/80) Never done DTAP,TDAP,TD(1 - Tdap) Never done PAP TESTING Never done HPV TESTING Never done MAMMOGRAM Never done COLORECTAL CANCER SCREENING Never done SHINGRIX VACCINE(1 of 2) Never done INFLUENZA(1) Never done Message Sent to Practice: Yes Navigation Signature: Hannah Cota Ma October 15, 2021 12:06 PM [facility] Clinical Note 10-15-2021 Note Date & Type Note Facility 10-15-2021 Note Patient Outreach (FA MPWS) CARITO CARRASQUILLO ([id number]) 1955 F Date Time Provider Department 10/15/21 HANNAH COTA During your visit today, we recorded the following information about you: Hannah Cota Ma 10/15/2021 2:22 PM Signed POPULATION HEALTH NAVIGATION OUTREACH Action/FYI 10/15/21-Message left on pt identified VM to call office back. Is she still following with , if so need appt and lab work done. If she is established with someone else please updated pcp. Pt identified by name and : YES, via phone Outreach Outcome/Action Unable to reach patient: Left message Reason for Outreach Care Gap or Scheduling/Wellness visits Payer: Payor: [facility] / Plan: [facility] CHOICE PLUS / Product Type: HMO / Care Gap Reviewed:: Follow-up appointment Reminder: Reminder note to check Health Maintenance for items below Health Maintenance items due: HBA1C Never done COVID-19 VACCINE(1) Never done URINE ALBUMIN:CREATININE RATIO Never done DILATED RETINAL EXAM Never done ONE PNEUMOVAX PRIOR TO AGE 67 Never done LDL CHOLESTEROL Never done BP CONTROLLED (<130/80) Never done DTAP,TDAP,TD(1 - Tdap) Never done PAP TESTING Never done HPV TESTING Never done MAMMOGRAM Never done COLORECTAL CANCER SCREENING Never done SHINGRIX VACCINE(1 of 2) Never done INFLUENZA(1) Never done Message Sent to Practice: Yes Navigation Signature: Hannah Cota Wing October 15, 2021 12:06 PM Eugenia Ma LPN 10/15/2021 2:22 PM Signed Pt called in and she is no longer with Dr. Kuhn. PCP updated. Eugenia Ma LPN Allergies As of Date: 10/15/2021 (Not on File) Date Reviewed: 05/16/2021 Reviewed by: Anika Latif APRN.HUMAN RESOURCES PROFESSIONAL - Fully Assessed Reason for Visit: PHMA/Care Gap Outreach [[id number]] Prescriptions as of 10/15/2021 - FARXIGA 5 mg tablet TAKE 1 TAB BY MOUTH DAILY WITH BREAKFAST - lisinopril (ZESTRIL, PRINIVIL) 40 mg tablet TAKE 1 TABLET BY MOUTH EVERY DAY - atorvastatin (LIPITOR) 10 mg tablet TAKE 1 TABLET BY MOUTH EVERY DAY - glimepiride (AMARYL) 4 mg tablet TAKE 1 TABLET BY MOUTH EVERY DAY WITH BREAKFAST - EPINEPHrine (EPIPEN) 0.3 mg/0.3 mL auto-injector Give IM injection if bee/wasp sting occurs. Problem List As Of Date 10/15/2021 Noted Resolved Controlled type 2 diabetes mellitus without com*05/16/2021 Hypertension, essential [I10] 05/16/2021 Hyperlipidemia, mixed [E78.2] 05/16/2021 Encounter Status:Closed by EUGENIA MA LPN on 10/15/21 [facility] Progress note 05-16-2021 Note Date & Type Note Facility 05-16-2021 Note HNO ID: [id number] Author: Anika Latif APRN.HUMAN RESOURCES PROFESSIONAL Service: ? Author Type: Nurse Practitioner Type: Progress Notes Filed: 05/16/2021 9:01 AM Note Text: This is a 66 year old female who presents today with: Patient presents with: Physical: wellness HISTORY OF PRESENT ILLNESS: Carito Carrasquillo is a 66 year old female. Patient presents with: Physical: wellness Here in the office for wellness exam and to establish care. Diet: Has been working on eating a well balanced diet, but just moved here. Exercise: Walking several times per week. Vision: Due for exam, supposed to wear glasses. Dental: Due for exam, no difficulties. Sleep: 6-7 hours per night. Some nights will have some difficulty falling asleep and staying asleep. Used to work hourly shift. Mood: Denies any sadness, hopelessness, anxiety, or suicidal ideation. Colonoscopy: Last one several years ago, was normal. Would like to wait until next year. Mammogram: Has been over 10 years, was normal. Due now. Pap: Hysterectomy- partial, one ovary left . History of endometriosis. Vaccines: Denied all vaccines, but discussed at this visit. HTN: Taking lisinopril, well managed. Denies any headache, chest pain, sob, or edema. DM: Reports overall feeling well. Medication side effects: No. Home sugar checks: 210 Hypoglycemic spells: No. Watching diet: Yes. Unexpected weight loss: No. Polyuria, polydipsia: No. Vision Changes: No. Foot lesions or numbness or pain: No. PAST MEDICAL HISTORY: No past medical history on file. No past surgical history on file. ALLERGIES Patient has no allergy information on record. MEDICATIONS No current outpatient medications on file. No current facility-administered medications for this visit. No family history on file. Social History Tobacco Use - Smoking status: Not on file Substance Use Topics - Alcohol use: Not on file - Drug use: Not on file REVIEW OF SYSTEMS GENERAL: No weight loss, malaise or fevers/chills HEENT: Negative for frequent or significant headaches, No changes in hearing or vision. NECK: Negative for lumps, goiter, pain and significant neck swelling RESPIRATORY: Negative for cough, hemoptysis, wheezing, dyspnea or shortness of breath CARDIOVASCULAR: Negative for chest pain, leg swelling, orthopnea, or palpitations GI: No nausea, vomiting, or diarrhea/constipation. No hematochezia/melena. No heartburn or reflux symptoms. : No history of dysuria, frequency or incontinence MUSCULOSKELETAL: Negative for joint pain or swelling. SKIN: Negative for lesions, rash, and itching ENDOCRINE: Negative for cold or heat intolerance, polyuria, polydipsia and goiter NEURO: No history of headaches, syncope, paralysis, seizures or tremors MOOD: Negative for depression, anxiety, or suicidal ideation. EXAM: BP 110/80 Pulse 103 Resp 16 Ht 163 cm (5' 4.17 ) Wt 87.5 kg (193 lb) SpO2 97% BMI 32.95 kg/m? PHYSICAL EXAM: General Appearance: Well appearing, alert, in no acute distress, well-hydrated, well nourished. Skin: Skin color, texture, turgor normal, no suspicious rashes or lesions. Head: Normocephalic, no masses, lesions, tenderness or abnormalities. Eyes: Anicteric sclera. Pupils are equally round and reactive to light. Extraocular movements are intact. Ears: External ears normal, canals clear. TM's pearly crenshaw. Neck: Supple, no adenopathy; thyroid symmetric, normal size, no bruits. Lungs: Lungs clear to auscultation. No wheezing, rhonchi, rales. Heart: RRR without murmur, gallop, or rubs. No ectopy. Abdomen: Normal abdominal exam, Abdomen soft, non-tender. Bowel sounds normal. No masses, organomegaly, Negative CVA tenderness. Extremities: No deformities, edema, skin discoloration, clubbing or cyanosis. Good capillary refill. Musculoskeletal: No joint swelling, deformity, or tenderness. Peripheral Pulses: Normal, Capillary refill <2secs, strong peripheral pulses, Pulses palpable. Neurologic: Gait normal. Reflexes normal and symmetric. Sensation grossly intact. Mood: Pleasant, good eye contact, engaged. ASSESSMENT/PLAN: 1. Wellness examination - ICD9: V70.0, ICD10: Z00.00 (primary diagnosis) - Set up for mammogram, yearly mammogram recommended - Encouraged monthly Breast Self Exam - Colon cancer screening reviewed and colonoscopy recommended. Patient declines testing at this time. - Recommended regular aerobic exercise. - Discussed need and benefit for weight loss. BMI 32.95 kg/(m2) - Check CBC with diff, CMP, HbA1C and fasting lipid panel - Vaccination(s) recommended today of Influenza, Tdap, Pneumovax, Shingrix and Hepatitis A - Follow up for annual exam in one year. - CBC + DIFF - CMP (CMP) (FOR REMOTE COUNT INCLUDES THE [facility] USE) 2. Controlled type 2 diabetes mellitus without complication, without long-term current use of insulin (HCC) - ICD9: 250.00, ICD10: E11.9 The patient is new to me. - Continue current medications - Blood gluco (more content not included)... [facility] Summary Purpose Family History No Family History Records FoundNo Family History Records FoundNo Family History Records FoundNo Family History Records FoundNo Family History Records Found Advance Directives No Advanced Directives Records FoundNo Advanced Directives Records FoundNo Advanced Directives Records FoundNo Advanced Directives Records FoundNo Advanced Directives Records Found Additional Source Comments INFORMATION SOURCE (unrecogn ized section and content) DATE CREATED AUTHOR AUTHOR'S ORGANIZ ATION 03/25/2019 [facility] DATE CREATED AUTHOR AUTHOR'S ORGANIZ ATION 09/22/2020 [employer] DATE CREATED AUTHOR AUTHOR'S ORGANIZ ATION 02/04/2021 [facility] DATE CREATED AUTHOR AUTHOR'S ORGANIZ ATION 11/01/2021 [facility] FOR RECORDS PERTAINING TO PATIENTS WHO ARE OR HAVE BEEN ENROLLED IN A CHEMICAL DEPENDENCY/SUBSTANCEABUSE PROGRAM, SOME INFORMATION MAY BE OMITTED. This clinical summary was aggregated from multiple sources. Caution should be exercised in using it in the provision of clinical care. This summary normalizes information from multiple sources, and as a consequence, information in this document may materially change the coding, format and clinical context of patient data. In addition, data may be omitted in some cases. CLINICAL DECISIONS SHOULD BE BASED ON THE PRIMARY CLINICAL RECORDS. [employer] [facility]. provides no warranty or guarantee of the accuracy or completeness of information in this document.
== END 2023-08-10 10:42 | disposition home or self-care (01) ==
LOC: ED 10:35
PROVIDERS: Emergency Provider Emergency Medicine; PCP Family Medicine Geriatric Medicine; Visit Provider Emergency Medicine
DX: L03.211 Cellulitis of face (principal); E11.9 Type 2 diabetes mellitus without complications; I10 Essential (primary) hypertension; E78.00 Pure hypercholesterolemia, unspecified; Z79.82 Long term (current) use of aspirin; Z79.84 Long term (current) use of oral hypoglycemic drugs; Z79.899 Other long term (current) drug therapy
CPT/HCPCS: 99282

== ENCOUNTER → 2023-11-18 | Outpatient (CLI) | payer MEDICARE, SELFPAY ==
[2023-11-18 10:33] LABS: Absolute Lymphocyte Count 2.32 X10^3/uL (0.83-4.51); Absolute Neutrophil Count 2.4 X10^3/uL (2.0-7.7); Basophil# 0.06 X10^3/uL; Basophil% 1.1 % (0-1); Eosinophils% 5.4 % (0-5); Hematocrit 45.5 % (37-47); Hemoglobin 15.2 g/dL (12.0-15.0); Lymphocyte # 2.32 X10^3/ul (0.83-4.51); Lymphocyte % 41.5 % (19-41); Mean Corp Hgb Conc 33.4 g/dL (32-36); Mean Corpuscular Volume 86.8 fL (81-99); Monocyte# 0.46 X10^3/uL; Monocyte% 8.2 % (0-10); NRBC Flagged by Analyzer 0 % (0-5); Neutrophil # 2.44 X10^3/uL (2.7-7.7); Neutrophil % 43.6 % (47-70); Platelet Count 123 K/mm3 (150-450); RBC Distribution Width CV 13.2 % (11.6-14.6); Red Blood Count 5.24 M/mm3 (4.2-5.4); White Blood Count 5.6 K/mm3 (4.4-11.0)
[2023-11-18 11:04] LABS: Vitamin D,25 Hydroxy 34.8 ng/mL
[2023-11-18 15:07] LABS: ALB/GLOB Ratio 1.5 RATIO (0.9-2.4); AST(SGOT) 15 U/L (15-37); Alanine Aminotransfer ALT/SGPT 22 U/L (13-56); Albumin, Serum 4.2 g/dL (3.2-5.0); Alkaline Phosphatase 106 U/L (45-117); Anion Gap 6 (5-15); BUN 12 mg/dL (7-18); Calcium,Total 9.2 mg/dL (8.5-10.1); Chloride 109 mmol/L (98-107); EST Glomerular Filtration Rate 106 mL/min (>60); Est Glom Filt Rate - Afr Amer 128 mL/min (>60); Globulin 2.8 g/dL (2.2-4.2); Glucose 180 mg/dL (74-106); Potassium 3.9 mmol/L (3.5-5.1); Sodium Level 141 mmol/L (136-145); Thyroid Stim Hormone (TSH) 2.22 uIU/mL (0.358-3.74)
== END | disposition home or self-care (01) ==
LOC: LAB 09:05
PROVIDERS: PCP Family Medicine Geriatric Medicine; Referring Provider Family Medicine Geriatric Medicine; Visit Provider Family Medicine Geriatric Medicine
DX: I10 Essential (primary) hypertension (principal); E11.65 Type 2 diabetes mellitus with hyperglycemia; E55.9 Vitamin D deficiency, unspecified
CPT/HCPCS: 36415; 80053; 82306; 84443; 85025

== ENCOUNTER 2023-12-17 22:23 | Emergency (ER) | payer MEDICARE, SELFPAY ==
[2023-12-17 22:24] VITALS: BP 160/91; PULSE 91; RESP 16; TEMP 36.3; O2SAT 97; BMI 31.8
[2023-12-17] MEDS: Ketorolac 15 MG/ML Vial IV (23:18)
[2023-12-17] MEDS: 0.9% Normal Saline (500mL Bag) 500 ML 999 ML IV (23:19)
[2023-12-17] MEDS: Orphenadrine 60 MG/2 ML Ampul IV (23:19)
[2023-12-17 23:30] LABS: Absolute Neutrophil Count 2.5 X10^3/uL (2.0-7.7); Basophil# 0.06 X10^3/uL; Eosinophil# 0.29 X10^3/uL; Eosinophils% 4.7 % (0-5); Hematocrit 44.9 % (37-47); Hemoglobin 14.8 g/dL (12.0-15.0); Mean Corpuscular Hgb 29.1 pg (27.0-32.0); Mean Corpuscular Volume 88.4 fL (81-99); Mean Platelet Vol. 12.8 fl (6.2-12.0); Monocyte# 0.59 X10^3/uL; Monocyte% 9.6 % (0-10); NRBC Flagged by Analyzer 0 % (0-5); Neutrophil # 2.48 X10^3/uL (2.7-7.7); Neutrophil % 40.4 % (47-70); Platelet Count 133 K/mm3 (150-450); RBC Distribution Width CV 13.2 % (11.6-14.6); RBC Distribution Width SD 42.5 fl (35.1-43.9); Red Blood Count 5.08 M/mm3 (4.2-5.4); White Blood Count 6.1 K/mm3 (4.4-11.0)
[2023-12-17 23:38] LABS: International Normalized Ratio 0.9; Partial Thromboplast Time 25.6 Seconds (24.1-36.2); Prothrombin Time (Protime)PT. 12.3 SECONDS (11.7-14.9)
[2023-12-17 23:59] LABS: Anion Gap 3 (5-15); BUN 13 mg/dL (7-18); BUN/Creat Ratio 19.6 RATIO (10-20); Calcium,Total 9.2 mg/dL (8.5-10.1); Chloride 106 mmol/L (98-107); Creatinine, Serum 0.66 mg/dL (0.55-1.02); EST Glomerular Filtration Rate 95 mL/min (>60); Est Glom Filt Rate - Afr Amer 114 mL/min (>60); Estimated Creatinine Clearance 75.23 ml/min; Glucose 274 mg/dL (74-106); Potassium 4.1 mmol/L (3.5-5.1); Sodium Level 139 mmol/L (136-145); Troponin-I HS 4 pg/mL (3.0-54.0)
[2023-12-18 00:24] VITALS: PULSE 72; RESP 18; O2SAT 96
--- NOTE | 2023-12-18 01:11 | EDS_ITS ---
HPI History of Present Illness Chief Complaint: Chest Other Informant: patient and spouse/S.O. Narrative Narrative: Patient is a 68-year-old female with past medical history of hypertension hyperlipidemia and [id number] diabetes. She states that over the last day she has noticed pain along the right anterior chest wall that wraps around towards her back and towards her right shoulder. She states she was outside working in the yard which is not abnormal for her and she does not remember any type of trauma or excessive activity. She states that her gallbladder has been previously removed. 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 She denies any nausea vomiting diaphoresis or shortness of breath but with the persistent pain she is concerned this could be cardiac or potential PE and therefore comes in for evaluation [facility] Medical History Diabetes Endometriosis High cholesterol Hypertension Home Medications cephalexin 500 mg capsule 500 mg PO Q6H 7 days #28 caps 06/27/21 [Rx Last Taken Unknown] aspirin 81 mg tablet,delayed release (Panda Low Dose Aspirin) 81 mg PO DAILY 09/26/22 [History Last Taken Unknown] atorvastatin 10 mg tablet 10 mg PO DAILY 09/26/22 [History Last Taken Unknown] cholecalciferol (vitamin D3) 50 mcg (2,000 unit) capsule (Vitamin D3) 2,000 unit PO DAILY 09/26/22 [History Last Taken Unknown] dapagliflozin propanediol 5 mg tablet (Farxiga) 5 mg PO BID 09/26/22 [History Last Taken Unknown] garlic 1 tab PO DAILY 09/26/22 [History Last Taken Unknown] glimepiride 4 mg tablet 4 mg PO DAILY 09/26/22 [History Last Taken Unknown] lisinopril 40 mg tablet 40 mg PO DAILY 09/26/22 [History Last Taken Unknown] multivitamin 1 tab PO DAILY 09/26/22 [History Last Taken Unknown] omeprazole 40 mg capsule,delayed release 40 mg PO DAILY #14 caps 09/26/22 [Rx Last Taken Unknown] cephalexin 500 mg capsule 500 mg PO Q6 #40 CAPSULES 08/10/23 [Rx Last Taken Unknown] methocarbamol 500 mg tablet 500 mg PO 4X/DAY PRN Muscle pain/spasm #40 tabs 12/18/23 [Rx Last Taken Unknown] Allergy/AdvReac Type Severity Reaction Status Date / Time bee venom protein (honey bee) Allergy Anaphylaxis Verified 12/17/23 22:27 Surgical History History of appendectomy History of cholecystectomy History of hysterectomy History of tonsillectomy Social History Smoking Status: Never smoker ROS ROS ED Constitutional Constitutional ED: Denies chills or fever(s) Eyes Eyes: Denies change in vision ENT ENT ED: Denies sore throat Cardiovascular Cardiovascular: Reports chest pain; Denies palpitations or racing heartbeat Respiratory/Chest Respiratory/Chest: Denies cough or dyspnea Gastrointestinal Gastrointestinal: Reports abdominal pain; Denies diarrhea, nausea or vomiting Genitourinary Genitourinary ED: Denies dysuria or hematuria Musculoskeletal Musculoskeletal: Reports back pain; Denies myalgias or neck pain Integumentary Denies rash Neurologic Neurologic: Denies headache(s) or paresthesias Hematologic/Lymphatic Hematologic/Lymphatic: Denies easy bleeding or easy bruising EXAM Physical Exam Const Vital Signs: 12/17/23 22:24 12/18/23 00:24 12/18/23 01:27 Temperature 97.3 F L 97.9 F Temperature Source Temporal Pulse Rate 91 72 72 Respiratory Rate 16 18 18 Blood Pressure 160/91 H 144/90 H Blood Pressure Mean 114 108 Pulse Ox 97 96 98 Oxygen Delivery Method Room Air Positive well nourished and well developed General Appearance ED: well developed; Negative for pallor HEENT HEENT Narrative: Normocephalic atraumatic Eyes PERRL and EOMs intact bilaterally General Eye ED: Negative for scleral icterus Neck supple Neck Narrative: No nuchal rigidity or meningeal signs Chest Wall Chest Narrative: There is reproducible pain with palpation of the right anterior chest wall that patient states is the same pain she has been experiencing. No bony deformity or crepitance noted. No overlying soft tissue changes to suggest trauma or infection Resp normal respiratory effort and clear to auscultation bilaterally Cardio regular rate and regular rhythm Rate: other Other Details: Heart is regular rate and rhythm Radial and carotid pulses are equal and symmetric GI normal to inspection, nondistended, normoactive bowel sounds, non-tender, non- distended and no masses GI Narrative: No voluntary guarding or rigidity No pulsatile mass or fluid wave Negative Orlando sign consistent with previous cholecystectomy Auscultation: normoactive bowel sounds Palpation: soft Back/Spine no CVA tenderness Extremity normal to inspection Extremity Narrative: No asymmetric edema no pitting edema negative Homans' sign bilaterally Neuro oriented x3, CN's II-XII intact bilaterally and no sensory deficits noted Sensorium / Orientation: alert Motor Exam: strength 5/5 throughout Psych mental status grossly normal Skin no rashes or lesions noted, no wounds and skin turgor normal General Skin Exam: Negative for jaundice or pallor MDM MDM MDM Narrative Medical decision making narrative: Patient arrived to the ER hypertensive otherwise with stable vitals. She reported pain in the right-sided chest wall that did seem to worsen with inspiration but did not occur after any type of trauma or excessive activity. Differential diagnosis is for pneumonia versus pneumothorax versus pulmonary embolus versus acute coronary syndrome versus musculoskeletal chest wall pain. As the patient does have remote history of PE and is not on anticoagulation there is concern for this with her reported pleuritic pain and so therefore elected to perform a CTA. This showed no PE or dissection or pneumonia or pneumothorax. Patient's EKG is sinus rhythm and troponin is normal at 4 going against acute coronary syndrome. As she does have pain that is worsened with motion and overall has a negative workup this is most likely musculoskeletal pain and therefore she can be discharged home with symptomatic care History & Record Review Discussion w/independent historian: Patient and Significant other Lab Data Attestation: I reviewed the patient's lab results. Labs: Laboratory Results - last 24 hr 12/17/23 23:12 WBC 6.1 RBC 5.08 Hgb 14.8 Hct 44.9 MCV 88.4 MCH 29.1 MCHC 33.0 RDW Std Deviation 42.5 RDW Coeff of David 13.2 Plt Count 133 L MPV 12.8 H Immature Gran % (Auto) 0.300 Neut % (Auto) 40.4 L Lymph % (Auto) 44.0 H Colquitt % (Auto) 9.6 Eos % (Auto) 4.7 Baso % (Auto) 1.0 Absolute Neuts (auto) 2.5 Absolute Lymphs (auto) 2.70 Nucleated RBC % 0 PT 12.3 INR 0.9 APTT 25.6 Sodium 139 Potassium 4.1 Chloride 106 Carbon Dioxide 30.0 Anion Gap 3 L BUN 13 Creatinine 0.66 Estim Creat Clear Calc 75.23 Est GFR (MDRD) Af Amer 114 Est GFR (MDRD) Non-Af 95 BUN/Creatinine Ratio 19.6 Glucose 274 H Calcium 9.2 Troponin I High Sens 4 Radiography Diagnostic Testing: Clinical Impression(s) from Imaging Studies Chest CTA 12/18/23 23:09 IMPRESSION: 1. No pulmonary embolus or acute intrathoracic abnormality 2. Atherosclerotic disease 3. Mild scarring and volume loss right middle lobe Electronically Signed: Fritz Ash MD at 0:42 EDT , Discharge Plan Triage Chief Complaint: Chest Other ED Provider: Kermit Joseph Dx/Rx/DC Orders Clinical Impression: Acute chest wall pain, Non-insulin dependent diabetes mellitus, Hypertension Instructions: ED Chest Pain, Noncardiac Prescriptions: New methocarbamol 500 mg tablet 500 mg PO 4X/DAY PRN (Reason: Muscle pain/spasm) Qty: 40 0RF No Action cephalexin 500 mg capsule 500 mg PO Q6H 7 Days Qty: 28 0RF multivitamin Tablet 1 tab PO DAILY atorvastatin 10 mg tablet 10 mg PO DAILY aspirin [Panda Low Dose Aspirin] 81 mg tablet,delayed release (DR/EC) 81 mg PO DAILY glimepiride 4 mg tablet 4 mg PO DAILY lisinopril 40 mg tablet 40 mg PO DAILY garlic Tablet 1 tab PO DAILY cholecalciferol (vitamin D3) [Vitamin D3] 50 mcg (2,000 unit) capsule 2,000 unit PO DAILY Farxiga 5 mg tablet 5 mg PO BID omeprazole 40 mg capsule,delayed release(DR/EC) 40 mg PO DAILY Qty: 14 0RF cephalexin 500 mg capsule 500 mg PO Q6 Qty: 40 0RF Primary Care Provider: Piter Handy Chi Referrals: Piter Handy Chi, MD [Primary Care Provider] - Activity Restrictions/Additional Instructions: Your workup today showed no sign of abnormal heart rhythm or damage to the heart. The CT scan confirmed there is no blood clot or pneumonia and this indicates the pain is most likely musculoskeletal in nature. Continue with Tylenol and/or Motrin for pain control and add the muscle relaxer as directed. Return to the ER should you have any further concerns Disposition Disposition: Home, Self Care Discharge Date/Time: 12/18/23 01:28
[2023-12-18 01:27] VITALS: BP 144/90; PULSE 72; RESP 18; TEMP 36.6; O2SAT 98
--- NOTE | 2023-12-18 23:09 | CT_ITS ---
STUDY: CTA CHEST REASON FOR EXAM: Female, 68 years old. Chest pain / ? PE TECHNIQUE: CT angiogram of chest was performed with the intravenous administration of 100 ml [id number]-[id number]. Post-processing of the angiographic images was performed, with MIP and MPR reconstructions. Individualized dose optimization techniques were used for this CT. COMPARISON: None. FINDINGS: PULMONARY ARTERIES: No pulmonary arterial filling defects identified. AORTA AND VISUALIZED GREAT VESSELS: Mild atherosclerotic plaque with no thoracic aortic aneurysm or dissection. Great vessels are patent. HEART AND PERICARDIUM: Heart size within normal limits. Coronary arterial calcifications noted. No significant pericardial effusion. MEDIASTINUM AND SAVANA: No mediastinal or hilar adenopathy. Esophagus is unremarkable. LUNGS, PLEURA AND LARGE AIRWAYS: No pulmonary edema, mass or consolidation. Mild scarring and volume loss medial right middle lobe. Minimal basilar atelectatic changes. No pleural effusion or thickening. No pneumothorax. BONES: Intact with no suspicious osseous lesion. Mild degenerative changes along spine. CHEST WALL: No chest wall mass or acute findings. VISUALIZED ABDOMEN: No acute findings. Status post cholecystectomy. CT/CTA Chest W/WO Contrast IMPRESSION: 1. No pulmonary embolus or acute intrathoracic abnormality 2. Atherosclerotic disease 3. Mild scarring and volume loss right middle lobe Electronically Signed: Fritz Ash MD at 0:42 EDT ,
== END 2023-12-18 01:28 | disposition home or self-care (01) ==
PROVIDERS: Emergency Provider Emergency Medicine; PCP Family Medicine Geriatric Medicine; Visit Provider Emergency Medicine
DX: R07.89 Other chest pain (principal); E11.9 Type 2 diabetes mellitus without complications; I10 Essential (primary) hypertension; E78.00 Pure hypercholesterolemia, unspecified; Z79.82 Long term (current) use of aspirin; Z79.84 Long term (current) use of oral hypoglycemic drugs; Z79.899 Other long term (current) drug therapy; Z86.711 Personal history of pulmonary embolism; Z86.718 Personal history of other venous thrombosis and embolism; Z90.49 Acquired absence of other specified parts of digestive tract
CPT/HCPCS: 71275; 80048; 84484; 85025; 85610; 85730; 93005; 96361; 96374; 96375; 99282; J7030; Q9967; A4216

== ENCOUNTER 2024-02-28 15:33 | Emergency (ER) | payer MEDICARE, SELFPAY ==
[2024-02-28 15:34] VITALS: BP 150/11; PULSE 111; RESP 18; TEMP 36.4; O2SAT 98
--- NOTE | 2024-02-28 15:46 | CT_ITS ---
EXAM: CT HEAD WITHOUT INTRAVENOUS CONTRAST CLINICAL INDICATION: fall TECHNIQUE: Multiple axial images were obtained of the head without intravenous contrast. This CT exam was performed using one or more of the following dose reduction techniques: automated exposure control, adjustment of the mA and/or kV according to patient size, and/or use of iterative reconstruction technique. COMPARISON: No relevant prior studies available. FINDINGS: BRAIN AND EXTRA-AXIAL SPACES: Normal. Normal brain attenuation. No intra- or extra-axial hemorrhage. No acute infarct. No intracranial mass or mass effect. There is preservation of the crenshaw/white matter interface. Posterior fossa structures are unremarkable. Ventricles are appropriate for age. No hydrocephalus. Basal cisterns are patent. BONES/JOINTS: Normal calvarium. SINUSES: 6 mm polyp or mucous retention cyst noted within the right maxillary sinus. MASTOID AIR CELLS: Normal. Clear. CT/Brain/Head without Contrast IMPRESSION: No acute intracranial abnormality. Electronically Signed: Berto Farfan MD at 16:32 EDT ,
--- NOTE | 2024-02-28 15:46 | CT_ITS ---
EXAM: CT CERVICAL SPINE WITHOUT INTRAVENOUS CONTRAST CLINICAL INDICATION: trauma TECHNIQUE: Helically acquired images were obtained of the cervical spine without intravenous contrast. 2D reformatted images were reviewed. This CT exam was performed using one or more of the following dose reduction techniques: automated exposure control, adjustment of the mA and/or kV according to patient size, and/or use of iterative reconstruction technique. COMPARISON: No relevant prior studies available. FINDINGS: VERTEBRAE: Loss of the normal cervical lordosis which may be due to muscle spasm or head positioning. No acute fracture or subluxation. DISCS/SPINAL CANAL/NEURAL FORAMINA: Discs narrowing and vertebral body hypertrophy at C5-6 and C6-7. Left paracentral disc osteophyte complex at C5-6 and C6-7 resulting in narrowing of the lateral recesses. Bilateral neural foraminal narrowing at C5-6 and C6-7 related to uncinate joint hypertrophy. Multilevel facet arthropathy. SOFT TISSUES: Normal. No prevertebral soft tissue swelling. LYMPH NODES: Normal. No cervical adenopathy. LUNG APICES: Unremarkable as visualized. CT/Spine Cervical without Contras IMPRESSION: No acute bone or joint abnormality. Spondylosis as described. Electronically Signed: Berto Farfan MD at 16:34 EDT ,
[2024-02-28 15:48] VITALS: BMI 31.5
--- NOTE | 2024-02-28 15:48 | EDS_ITS ---
HPI HPI - Fall History of Present Illness Chief Complaint: Fall Informant: patient Occured/Mechanism Occurred: Today Narrative Narrative: Patient presents after a fall. She states she missed the bottom step and fell onto concrete. She landed on her right side. She denies loss of consciousness. She has an abrasion to the right forehead, left elbow, right hand, and right knee. She complains of pain and swelling to the right hip area. She also has pain to the right lateral neck. She takes baby aspirin but no other form of anticoagulation. [facility] Medical History Endometriosis Diabetes High cholesterol Hypertension Home Medications ?Medication ?Instructions ?Recorded ?Last Taken ?Type cephalexin 500 mg capsule 500 mg PO Q6H 7 days #28 caps 06/27/21 Unknown Rx aspirin 81 mg tablet,delayed 81 mg PO DAILY 09/26/22 Unknown History release (Panda Low Dose Aspirin) atorvastatin 10 mg tablet 10 mg PO DAILY 09/26/22 Unknown History cholecalciferol (vitamin D3) 50 2,000 unit PO DAILY 09/26/22 Unknown History mcg (2,000 unit) capsule (Vitamin D3) dapagliflozin propanediol 5 mg 5 mg PO BID 09/26/22 Unknown History tablet (Farxiga) garlic 1 tab PO DAILY 09/26/22 Unknown History glimepiride 4 mg tablet 4 mg PO DAILY 09/26/22 Unknown History lisinopril 40 mg tablet 40 mg PO DAILY 09/26/22 Unknown History multivitamin 1 tab PO DAILY 09/26/22 Unknown History omeprazole 40 mg capsule,delayed 40 mg PO DAILY #14 caps 09/26/22 Unknown Rx release cephalexin 500 mg capsule 500 mg PO Q6 #40 CAPSULES 08/10/23 Unknown Rx methocarbamol 500 mg tablet 500 mg PO 4X/DAY PRN Muscle 12/18/23 Unknown Rx pain/spasm #40 tabs Allergy/AdvReac Type Severity Reaction Status Date / Time bee venom protein (honey bee) Allergy Anaphylaxis Verified 12/17/23 22:27 morphine AdvReac Severe HEADACHE Verified 02/28/24 15:53 Surgical History History of tonsillectomy History of hysterectomy History of appendectomy History of cholecystectomy Social History Smoking Status: Never smoker ROS ROS ED Constitutional Constitutional ED: Denies chills or fever(s) Eyes Eyes: Denies change in vision ENT ENT ED: Denies rhinorrhea or sore throat Cardiovascular Cardiovascular: Denies chest pain or palpitations Respiratory/Chest Respiratory/Chest: Denies cough or dyspnea Gastrointestinal Gastrointestinal: Denies abdominal pain, nausea or vomiting Musculoskeletal Musculoskeletal: Reports extremity pain and neck pain; Denies back pain Integumentary Reports Abrasions; Denies rash Neurologic Neurologic: Reports headache(s); Denies weakness Psychiatric Psychiatric: Denies anxiety or depression Allergic/Immunologic Allergic/Immunologic ED: Denies lip swelling or urticaria EXAM Physical Exam Const Vital Signs: 02/28/24 15:34 02/28/24 15:42 Temperature 97.6 F L Temperature Source Temporal Pulse Rate 111 H Respiratory Rate 18 Respiratory Effort Normal Non-Labored Respiratory Depth Normal Respiratory Pattern Normal Blood Pressure 150/11 H Blood Pressure Mean 57 Pulse Ox 98 Oxygen Delivery Method Room Air Room Air Positive well nourished and well developed General Appearance ED: well developed HEENT HEENT Narrative: Abrasions to the right forehead with a 1/2 cm superficial laceration. Bleeding well-controlled. Wound is just superior to the lateral eyebrow on the right. Eyes PERRL and EOMs intact bilaterally Neck Neck Narrative: No midline C-spine tenderness. Mild tenderness in the right cervical paraspinal muscles. Chest Wall inspection of chest normal and palpation of chest normal Chest Narrative: No chest wall tenderness. Resp normal respiratory effort and clear to auscultation bilaterally Cardio regular rate and regular rhythm GI non-tender Palpation: soft Extremity Extremity Narrative: Abrasion to the extensor surface of the lateral left elbow with full range of motion no bony tenderness. Abrasion and early ecchymosis with mild swelling to the base of the fifth finger on the right hand. No tenderness at the wrist, elbow, or shoulder. Small superficial abrasion noted over the right anterior knee. Good range of motion with no bony tenderness. Patient does have focal area of swelling consistent with a hematoma over the right greater trochanter bursa. No overlying skin changes to this area. Left lower extremity examination reveals mild tenderness just distal to the left patella. No overlying skin changes. Full range of motion at the joint. Neuro oriented x3, moves all extremities, no focal motor deficits and no sensory deficits noted Psych mental status grossly normal MDM MDM MDM Narrative Medical decision making narrative: Patient given Tylenol for pain. Tetanus update is provided. CT scan of the brain and C-spine is obtained to evaluate for acute bleed, fracture, edema. X- rays of the right hand and right femur obtained to evaluate for any acute bony injury. History & Record Review Discussion w/independent historian: Patient Radiography Diagnostic Testing: Clinical Impression(s) from Imaging Studies Brain CT 02/28/24 15:46 IMPRESSION: No acute intracranial abnormality. Electronically Signed: Berto Farfan MD at 16:32 EDT , Cervical Spine CT 02/28/24 15:46 IMPRESSION: No acute bone or joint abnormality. Spondylosis as described. Electronically Signed: Breto Farfan MD at 16:34 EDT , Femur X-Ray 02/28/24 16:00 IMPRESSION: No acute bone or joint abnormality. Electronically Signed: Berto Farfan MD at 16:30 EDT , Hand X-Ray 02/28/24 16:00 IMPRESSION: Acute nondisplaced fracture of the fifth metacarpal. Electronically Signed: Berto Farfan MD at 16:28 EDT , Treatment and Re-Evaluation Narrative: CT scan of the brain reveals no acute intracranial abnormality. CT the C-spine reveals no acute bone or joint abnormality. Right femur x-ray per my interpretation feels no obvious bony injury. Radiology interpretation reviewed and agrees. Right hand x-ray per my interpretation reveals questionable fracture of the proximal fifth metacarpal. Most of her tenderness is over the distal fifth metacarpal. Radiology interpretation is reviewed and they do agree patient has an acute nondisplaced fracture of the proximal fifth metacarpal. Test results discussed with the patient. Right hand is placed in an ulnar gutter splint. Following splint application she has good cap refill distally. She will be referred to Dr. Cummings, on-call for orthopedics. Forehead abrasion is cleansed with antibiotic ointment. Patient instructed to use ice to the right lateral hip/femur hematoma. Discharge Plan Triage Chief Complaint: Fall ED Provider: Hue Sierra Dx/Rx/DC Orders Clinical Impression: Fall, Hand fracture, right, Hematoma, Closed head injury, Abrasion Instructions: ED Abrasion, ED Concussion, ED Mechanical Fall, ED Head Injury (Adult), ED Hematoma Prescriptions: No Action cephalexin 500 mg capsule 500 mg PO Q6H 7 Days Qty: 28 0RF multivitamin Tablet 1 tab PO DAILY atorvastatin 10 mg tablet 10 mg PO DAILY aspirin [Panda Low Dose Aspirin] 81 mg tablet,delayed release (DR/EC) 81 mg PO DAILY glimepiride 4 mg tablet 4 mg PO DAILY lisinopril 40 mg tablet 40 mg PO DAILY garlic Tablet 1 tab PO DAILY cholecalciferol (vitamin D3) [Vitamin D3] 50 mcg (2,000 unit) capsule 2,000 unit PO DAILY Farxiga 5 mg tablet 5 mg PO BID omeprazole 40 mg capsule,delayed release(DR/EC) 40 mg PO DAILY Qty: 14 0RF cephalexin 500 mg capsule 500 mg PO Q6 Qty: 40 0RF methocarbamol 500 mg tablet 500 mg PO 4X/DAY PRN (Reason: Muscle pain/spasm) Qty: 40 0RF Primary Care Provider: Piter Handy Chi Referrals: Lorne Cummings MD [Med Staff - Active Staff] - 5-7 Days Piter Handy Chi, MD [Primary Care Provider] - Print Language: Citizen Of [place] Disposition Disposition: Home, Self Care
--- NOTE | 2024-02-28 16:00 | RAD_ITS ---
EXAM: XR RIGHT HAND COMPLETE, 3 OR MORE VIEWS CLINICAL INDICATION: fall TECHNIQUE: Frontal, lateral and oblique views of the right hand. COMPARISON: No relevant prior studies available. FINDINGS: BONES/JOINTS: Acute transverse none fracture of the proximal portion of the fifth metacarpal. No subluxation deformity. Mild narrowing of the joints of the hand and wrist. No periarticular erosion. SOFT TISSUES: Normal. No soft tissue swelling or gas. No radiopaque foreign body. RAD/Hand Min 3 Views IMPRESSION: Acute nondisplaced fracture of the fifth metacarpal. Electronically Signed: Berto Farfan MD at 16:28 EDT ,
--- NOTE | 2024-02-28 16:00 | RAD_ITS ---
EXAM: XR RIGHT FEMUR, 2 VIEWS CLINICAL INDICATION: fall TECHNIQUE: Frontal and lateral views of the right femur. COMPARISON: No relevant prior studies available. FINDINGS: BONES/JOINTS: No acute fracture or subluxation. Degenerative narrowing of the right knee joint. No knee joint effusion. Mild bony hypertrophy of the acetabulum. No significant hip joint space narrowing. SOFT TISSUES: Normal. No soft tissue swelling or gas. No radiopaque foreign body. RAD/Femur Min 2 Views IMPRESSION: No acute bone or joint abnormality. Electronically Signed: Berto Farfan MD at 16:30 EDT ,
[2024-02-28] MEDS: Acetaminophen 500 MG Tablet 1000 MG PO (16:23)
[2024-02-28] MEDS: Diphth,Pertuss(Acell),Tet Vac 0.5 ML Vial IM (16:23)
[2024-02-28 17:51] VITALS: BP 134/79; PULSE 90; RESP 18; TEMP 36.4; O2SAT 98
== END 2024-02-28 17:52 | disposition home or self-care (01) ==
PROVIDERS: Emergency Provider Emergency Medicine; PCP Family Medicine Geriatric Medicine; Visit Provider Emergency Medicine
DX: S62.306A Unspecified fracture of fifth metacarpal bone, right hand, initial encounter for closed fracture (principal); E11.9 Type 2 diabetes mellitus without complications; S70.01XA Contusion of right hip, initial encounter; S60.051A Contusion of right little finger without damage to nail, initial encounter; S00.81XA Abrasion of other part of head, initial encounter; S80.211A Abrasion, right knee, initial encounter; S60.511A Abrasion of right hand, initial encounter; S50.312A Abrasion of left elbow, initial encounter; M54.2 Cervicalgia; Z23 Encounter for immunization; W10.9XXA Fall (on) (from) unspecified stairs and steps, initial encounter; I10 Essential (primary) hypertension; E78.00 Pure hypercholesterolemia, unspecified; Z79.82 Long term (current) use of aspirin; Z79.84 Long term (current) use of oral hypoglycemic drugs; Z79.899 Other long term (current) drug therapy
CPT/HCPCS: 70450; 72125; 73130; 73552; 90471; 90715; 99283; A4216

== ENCOUNTER → 2024-05-19 | Outpatient (CLI) | payer MEDICARE, SELFPAY ==
[2024-05-19 09:45] LABS: Absolute Lymphocyte Count 2.51 X10^3/uL (0.83-4.51); Absolute Neutrophil Count 3.1 X10^3/uL (2.0-7.7); Basophil# 0.05 X10^3/uL; Basophil% 0.8 % (0-1); Eosinophil# 0.42 X10^3/uL; Eosinophils% 6.4 % (0-5); Hematocrit 46.9 % (37-47); Hemoglobin 15.3 g/dL (12.0-15.0); Lymphocyte # 2.51 X10^3/ul (0.83-4.51); Lymphocyte % 38.1 % (19-41); Mean Corp Hgb Conc 32.6 g/dL (32-36); Mean Corpuscular Hgb 28.7 pg (27.0-32.0); Mean Platelet Vol. 12.3 fl (6.2-12.0); Monocyte# 0.53 X10^3/uL; NRBC Flagged by Analyzer 0 % (0-5); Neutrophil # 3.06 X10^3/uL (2.7-7.7); Neutrophil % 46.4 % (47-70); Platelet Count 140 K/mm3 (150-450); RBC Distribution Width SD 41.7 fl (35.1-43.9); Red Blood Count 5.33 M/mm3 (4.2-5.4); White Blood Count 6.6 K/mm3 (4.4-11.0)
[2024-05-19 10:32] LABS: ALB/GLOB Ratio 1.3 RATIO (0.9-2.4); AST(SGOT) 27 U/L (15-37); Alanine Aminotransfer ALT/SGPT 33 U/L (13-56); Albumin, Serum 4.3 g/dL (3.2-5.0); Alkaline Phosphatase 104 U/L (45-117); Anion Gap 4 (5-15); BUN 16 mg/dL (7-18); BUN/Creat Ratio 22.5 RATIO (10-20); Calcium,Total 9.7 mg/dL (8.5-10.1); Chloride 105 mmol/L (98-107); Creatinine, Serum 0.71 mg/dL (0.55-1.02); EST Glomerular Filtration Rate 87 mL/min (>60); Est Glom Filt Rate - Afr Amer 106 mL/min (>60); Globulin 3.2 g/dL (2.2-4.2); Glucose 175 mg/dL (74-106); Potassium 4.3 mmol/L (3.5-5.1); Protein, Total 7.5 g/dL (6.4-8.2); Sodium Level 138 mmol/L (136-145)
[2024-05-19 11:06] LABS: Vitamin D,25 Hydroxy 32.8 ng/mL
== END | disposition home or self-care (01) ==
LOC: POLAB3 09:35
PROVIDERS: PCP Family Medicine Geriatric Medicine; Visit Provider Family Medicine Geriatric Medicine
DX: I10 Essential (primary) hypertension (principal); E11.65 Type 2 diabetes mellitus with hyperglycemia; E55.9 Vitamin D deficiency, unspecified
CPT/HCPCS: 36415; 80053; 82306; 84443; 85025

== ENCOUNTER → 2024-11-17 | Outpatient (CLI) | payer MEDICARE, SELFPAY ==
[2024-11-17 12:06] LABS: Absolute Lymphocyte Count 2.01 X10^3/uL (0.83-4.51); Absolute Neutrophil Count 3.9 X10^3/uL (2.0-7.7); Basophil# 0.08 X10^3/uL; Basophil% 1.2 % (0-1); Eosinophil# 0.29 X10^3/uL; Eosinophils% 4.2 % (0-5); Hematocrit 45.6 % (37-47); Hemoglobin 15.8 g/dL (12.0-15.0); Lymphocyte # 2.01 X10^3/ul (0.83-4.51); Lymphocyte % 29.3 % (19-41); Mean Corp Hgb Conc 34.6 g/dL (32-36); Mean Corpuscular Volume 86.5 fL (81-99); Mean Platelet Vol. 12.3 fl (6.2-12.0); Monocyte% 7.3 % (0-10); NRBC Flagged by Analyzer 0 % (0-5); Neutrophil # 3.94 X10^3/uL (2.7-7.7); Neutrophil % 57.4 % (47-70); Platelet Count 137 K/mm3 (150-450); RBC Distribution Width CV 12.9 % (11.6-14.6); RBC Distribution Width SD 40.2 fl (35.1-43.9); Red Blood Count 5.27 M/mm3 (4.2-5.4); White Blood Count 6.9 K/mm3 (4.4-11.0)
[2024-11-17 14:45] LABS: ALB/GLOB Ratio 1.8 RATIO (0.9-2.4); AST(SGOT) 19 U/L (<=31); Alanine Aminotransfer ALT/SGPT 18 U/L (<=34); Albumin, Serum 4.7 g/dL (3.4-4.8); Alkaline Phosphatase 75 U/L (35-104); Anion Gap 13 (5-15); BUN 13 mg/dL (4-19); BUN/Creat Ratio 25.3 RATIO (10-20); Calcium,Total 9.6 mg/dL (7.6-11.0); Carbon Dioxide 23.6 mmol/L (21.0-32.0); Chloride 104 mmol/L (98-108); Creatinine, Serum 0.53 mg/dL (0.70-1.20); EST Glomerular Filtration Rate 101 (>60); Globulin 2.6 g/dL (2.2-4.2); Glucose 141 mg/dL (70-99); Potassium 4.1 mmol/L (3.3-5.1); Protein, Total 7.3 g/dL (5.9-8.4); Sodium Level 141 mmol/L (133-145); Syphilis Antibodies Nonreactive (Nonreactive); Total Bilirubin 0.67 mg/dL (0.00-1.30)
[2024-11-17 14:46] LABS: Vitamin B12 439 pg/mL (180-914); Vitamin D,25 Hydroxy 32.7 ng/mL (30-100)
== END | disposition home or self-care (01) ==
LOC: LAB 11:16
PROVIDERS: PCP Family Medicine Geriatric Medicine; Referring Provider Family Medicine Geriatric Medicine; Visit Provider Family Medicine Geriatric Medicine
DX: I10 Essential (primary) hypertension (principal); E11.65 Type 2 diabetes mellitus with hyperglycemia; G31.84 Mild cognitive impairment of uncertain or unknown etiology; E55.9 Vitamin D deficiency, unspecified
CPT/HCPCS: 36415; 80053; 82306; 82607; 82746; 84443; 85025; 86780

== ENCOUNTER → 2025-02-18 | Outpatient (CLI) | payer MEDICARE, SELFPAY ==
[2025-02-18 10:19] LABS: Hematocrit 48.3 % (37-47); Hemoglobin 16.2 g/dL (12.0-15.0); Immature Granulocytes Count 0.030 X10^3/uL (0.0-0.0); Mean Corp Hgb Conc 33.5 g/dL (32-36); Mean Corpuscular Volume 87.5 fL (81-99); Mean Platelet Vol. 12.7 fl (6.2-12.0); NRBC Flagged by Analyzer 0 % (0-5); Platelet Count 142 K/mm3 (150-450); RBC Distribution Width CV 13.0 % (11.6-14.6); RBC Distribution Width SD 41.2 fl (35.1-43.9); Red Blood Count 5.52 M/mm3 (4.2-5.4); White Blood Count 7.1 K/mm3 (4.4-11.0)
[2025-02-18 11:58] LABS: Vitamin D,25 Hydroxy 37.3 ng/mL (30-100)
[2025-02-18 11:59] LABS: AST(SGOT) 37 U/L (<=31); Alanine Aminotransfer ALT/SGPT 27 U/L (<=34); Albumin, Serum 4.9 g/dL (3.4-4.8); Alkaline Phosphatase 81 U/L (35-104); Anion Gap 13 (5-15); BUN 11 mg/dL (4-19); BUN/Creat Ratio 15.4 RATIO (10-20); Calcium,Total 9.9 mg/dL (7.6-11.0); Carbon Dioxide 23.7 mmol/L (21.0-32.0); Chloride 103 mmol/L (98-108); Globulin 2.7 g/dL (2.2-4.2); Glucose 177 mg/dL (70-99); Potassium 4.7 mmol/L (3.3-5.1)
== END | disposition home or self-care (01) ==
LOC: POLAB3 10:02
PROVIDERS: PCP Family Medicine Geriatric Medicine; Visit Provider Family Medicine Geriatric Medicine
DX: I10 Essential (primary) hypertension (principal); E11.65 Type 2 diabetes mellitus with hyperglycemia; E55.9 Vitamin D deficiency, unspecified
CPT/HCPCS: 36415; 80053; 82306; 84443; 85025

== ENCOUNTER → 2025-05-19 | Outpatient (CLI) | payer MEDICARE, SELFPAY ==
[2025-05-19 11:44] LABS: Hematocrit 44.9 % (37-47); Hemoglobin 15.2 g/dL (12.0-15.0); Immature Granulocytes Count 0.020 X10^3/uL (0.0-0.0); Mean Corp Hgb Conc 33.9 g/dL (32-36); Mean Corpuscular Volume 86.3 fL (81-99); Mean Platelet Vol. 13.0 fl (6.2-12.0); NRBC Flagged by Analyzer 0 % (0-5); Platelet Count 146 K/mm3 (150-450); RBC Distribution Width CV 13.3 % (11.6-14.6); RBC Distribution Width SD 41.2 fl (35.1-43.9); Red Blood Count 5.20 M/mm3 (4.2-5.4); White Blood Count 6.3 K/mm3 (4.4-11.0)
[2025-05-19 12:19] LABS: Vitamin D,25 Hydroxy 28.3 ng/mL (30-100)
[2025-05-19 12:21] LABS: AST(SGOT) 24 U/L (<=31); Alanine Aminotransfer ALT/SGPT 23 U/L (<=34); Albumin, Serum 4.5 g/dL (3.4-4.8); Alkaline Phosphatase 71 U/L (35-104); Anion Gap 12 (5-15); BUN 11 mg/dL (4-19); BUN/Creat Ratio 16.9 RATIO (10-20); Calcium,Total 9.5 mg/dL (7.6-11.0); Carbon Dioxide 24.5 mmol/L (21.0-32.0); Chloride 103 mmol/L (98-108); Globulin 2.6 g/dL (2.2-4.2); Glucose 154 mg/dL (70-99); Potassium 4.1 mmol/L (3.3-5.1)
[2025-05-19 18:43] LABS: Xtra Tube Kwok EXTRA TUBE
== END | disposition home or self-care (01) ==
LOC: POLAB3 10:43
PROVIDERS: PCP Family Medicine Geriatric Medicine; Visit Provider Family Medicine Geriatric Medicine
DX: E11.65 Type 2 diabetes mellitus with hyperglycemia (principal); E55.9 Vitamin D deficiency, unspecified; I10 Essential (primary) hypertension
CPT/HCPCS: 36415; 80053; 82306; 83036; 84443; 85025